=== PATIENT | female | born 1960 | race Caucasian/White ===

== ENCOUNTER 2018-05-18 15:28 | Inpatient (IN) ==
[2018-05-18] MEDS ORDERED: Sod Chloride 0.9% Inj 1,000 ML IV.SIG ONE ×2 (15:49)
--- NOTE | 2018-05-18 15:49 | ED ---
HPI General Chief complaint: Urogenital-Female Stated complaint: dehydrated Time Seen by Provider: 05/18/18 15:40 Source: patient Mode of arrival: ambulatory Limitations: no limitations History of Present Illness HPI narrative: Patient states that over the last 2 days she has not had an appetite, she has had a diarrhea, some nausea but no vomiting, she denies having any abdominal pain chest pain back pain to be dissuading her from eating. It is simply a loss of appetite. She feels dehydrated, so she decided to drink sixpack of beer and that made her at least pee a little bit. Primary CARE physician is Dr. harris No nondrug allergies Past medical history significant for hypertension, alcoholism (the patient drinks wine beer and liquor patient states that it is difficult for her to quantify how much she drinks but on average day she can go through 2 bottles of wine 1/5 of vodka and 1-2 sixpacks of beer) Related Data Home Medications Medication Instructions Recorded Confirmed amlodipine 10 mg PO DAILY 05/18/18 05/18/18 Allergies Allergy/AdvReac Type Severity Reaction Status Date / Time No Known Allergies Allergy Verified 05/18/18 15:39 Review of Systems ROS: all other systems reviewed are negative PMFSH History History Provided By: Patient and Family Member Medical History Medical History Hypertension (Acute) Family History Family History Sister HTN (hypertension) Father HTN (hypertension) Mother HTN (hypertension) Social History Social History Substance History: No History of Abuse Smoking Status: Current every day smoker Tobacco Type: Cigarettes Packs Per Day: 1 Cigarettes Per Day: 20.0 How Often Do You Have a Drink Containing Alcohol: 4 or more times a week Recent Travel in [facility] within the Last 8 Weeks: No Recent Out of Country Travel within the Last 8 Weeks: No Exam Narrative Exam Narrative: GENERAL: overweight female in moderate distress. Thus far no hallucinations. SKIN: Warm and dry. HEAD: Atraumatic. Normocephalic. EYES: Pupils equal and round. No scleral icterus. No injection or drainage. ENT: No nasal bleeding or discharge. Mucous membranes pink and moist. NECK: Trachea midline. No JVD. CARDIOVASCULAR: Regular rate and rhythm. no rubs or gallops. Patient is noted to be tachycardic RESPIRATORY: No accessory muscle use. Clear to auscultation. Breath sounds equal bilaterally. GASTROINTESTINAL: Abdomen soft, non-tender, nondistended. No rebound or guarding MUSCULOSKELETAL: Extremities without clubbing, cyanosis, or edema. No obvious deformities. NEUROLOGICAL: Awake and alert. No obvious cranial nerve deficits. Motor grossly within normal limits. Five out of 5 muscle strength in the arms and legs. Normal speech. Patient is noted to have course baseline tremors PSYCHIATRIC: Appropriate mood and affect; insight and judgment normal. Course Initial Documented Vital Signs Temperature 98.4 F 05/18/18 15:36 Pulse Rate 94 H 05/18/18 15:36 Respiratory Rate 20 05/18/18 15:36 Blood Pressure 163/79 H 05/18/18 15:36 Pulse Oximetry 99 05/18/18 15:36 Last Documented Vital Signs Temperature 98.0 F 05/21/18 16:00 Pulse Rate 80 05/21/18 18:00 Respiratory Rate 16 05/21/18 16:09 Blood Pressure 120/77 05/21/18 16:00 Pulse Oximetry 98 05/21/18 16:00 Critical Care Time Critical Care Time: Yes Total Critical Care Time: 45 Attestation: Aggregate critical care time was 45 minutes. Time to perform other separately billable procedures was not included in the critical care time. My time did not include minutes spent treating any other patients simultaneously or on activities that did not directly contribute to the patient's treatment. The services I provided to this patient were to treat and/or prevent clinically significant deterioration. I provided critical care services requiring my management, as noted below: Chart data review, documentation time, medication orders and management, vital sign assessments/reviewing monitor data, ordering and reviewing lab tests, ordering and interpreting/reviewing x-rays and diagnostic studies, care of the patient and discussion of the patient with the admitting physicians. 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 Lab Data Result diagrams: 05/20/18 05:45 05/21/18 05:10 Lab Results 05/18/18 05/18/18 05/18/18 Range/Units 16:00 16:00 16:00 WBC 7.3 (4.0-11.0) th/mm3 RBC 3.86 L (4.00-5.30) mil/mm3 Hgb 14.5 (11.6-15.3) gm/dL Hct 39.6 (35.0-46.0) % MCV 102.7 H (80.0-100.0) fL MCH 37.5 H (27.0-34.0) pg MCHC 36.5 H (32.0-36.0) % RDW 14.1 (11.6-17.2) % Plt Count 223 (150-450) th/mm3 MPV 6.5 L (7.0-11.0) fL Prelim Diff (Auto) Slide review pending Neut % (Auto) 85.9 H (16.0-70.0) % Lymph % (Auto) 10.7 (9.0-44.0) % [place] % (Auto) 3.0 (0.0-8.0) % Eos % (Auto) 0.1 (0.0-4.0) % Baso % (Auto) 0.3 (0.0-2.0) % Neut # (Auto) 6.3 (1.8-7.7) th/mm3 Lymph # (Auto) 0.8 L (1.0-4.8) th/mm3 [place] # (Auto) 0.2 (0.0-0.9) th/mm3 Eos # (Auto) 0.0 (0.0-0.4) th/mm3 Baso # (Auto) 0.0 (0.0-0.2) th/mm3 WBC Differential . Diff Scan Auto diff confirmed Differential Comment . Platelet Estimate (Normal) Platelet Morphology (Normal) PT (9.8-11.6) sec INR Ratio APTT (23.4-31.7) sec Sodium 117 L* (136-145) meq/L Potassium 2.6 L* (3.5-5.1) meq/L Chloride 78 L (98-107) meq/L Carbon Dioxide 22.2 (21.0-32.0) meq/L Anion Gap 17 H (5-15) meq/L BUN 4 L (7-18) mg/dL Creatinine 0.82 (0.50-1.00) mg/dL Estimated GFR 72 L (>89) mL/min Random Glucose 98 (74-106) mg/dL Calcium 7.8 L (8.5-10.1) mg/dL Prot Corrected Calcium (8.5-10.1) mg/dL Phosphorus (2.5-4.9) mg/dL Magnesium 0.8 L (1.5-2.5) mg/dL Total Bilirubin 1.7 H (0.2-1.0) mg/dL AST 115 H (15-37) U/L ALT 91 H (10-53) U/L Alkaline Phosphatase 501 H (45-117) U/L B-Natriuretic Peptide (0-100) pg/mL Total Protein 7.2 (6.4-8.2) g/dL Albumin 3.3 L (3.4-5.0) g/dL Lipase 204 (73-393) U/L Beta HCG, Qual 2.3 (0-5) mIU/mL Urine Color (Yellw/Straw) Urine Clarity (Clear) Urine pH (5.0-8.5) Ur Specific [place] (1.002-1.035) Urine Protein (Neg-Trace) mg/dL Urine Glucose (UA) (Negative) mg/dL Urine Ketones (Negative) mg/dL Urine Occult Blood (Negative) Urine Nitrate (Negative) Urine Bilirubin (Negative) Urine Urobilinogen (Less than 2) mg/dL Ur Leukocyte Esterase (Negative) Ur Squamous Epith Cells (0-5) /hpf Micro UA Comment Ur Microscopic Review Urine Culture Comments Stl C.difficile DNA Amp (Negative) St C. diff Tox Epid 027 (Negative) Urine Opiates Screen (Neg) Ur Barbiturates Screen (Neg) Ur Amphetamines Screen (Neg) U Benzodiazepines Scrn (Neg) Urine Cocaine Screen (Neg) U Cannabinoids Screen (Neg) Serum Alcohol 117 H (0-5) mg/dL Hepatitis A IgM Ab (Nonreactive) Hep Bs Antigen (Nonreactive) Hep B Core IgM Ab (Nonreactive) Hep C IgG Ab (Nonreactive) 05/18/18 05/18/18 05/18/18 Range/Units 16:00 17:50 17:50 WBC (4.0-11.0) th/mm3 RBC (4.00-5.30) mil/mm3 Hgb (11.6-15.3) gm/dL Hct (35.0-46.0) % MCV (80.0-100.0) fL MCH (27.0-34.0) pg MCHC (32.0-36.0) % RDW (11.6-17.2) % Plt Count (150-450) th/mm3 MPV (7.0-11.0) fL Prelim Diff (Auto) Neut % (Auto) (16.0-70.0) % Lymph % (Auto) (9.0-44.0) % [place] % (Auto) (0.0-8.0) % Eos % (Auto) (0.0-4.0) % Baso % (Auto) (0.0-2.0) % Neut # (Auto) (1.8-7.7) th/mm3 Lymph # (Auto) (1.0-4.8) th/mm3 [place] # (Auto) (0.0-0.9) th/mm3 Eos # (Auto) (0.0-0.4) th/mm3 Baso # (Auto) (0.0-0.2) th/mm3 WBC Differential Diff Scan Differential Comment Platelet Estimate (Normal) Platelet Morphology (Normal) PT (9.8-11.6) sec INR Ratio APTT (23.4-31.7) sec Sodium (136-145) meq/L Potassium (3.5-5.1) meq/L Chloride (98-107) meq/L Carbon Dioxide (21.0-32.0) meq/L Anion Gap (5-15) meq/L BUN (7-18) mg/dL Creatinine (0.50-1.00) mg/dL Estimated GFR (>89) mL/min Random Glucose (74-106) mg/dL Calcium (8.5-10.1) mg/dL Prot Corrected Calcium (8.5-10.1) mg/dL Phosphorus 2.7 (2.5-4.9) mg/dL Magnesium (1.5-2.5) mg/dL Total Bilirubin (0.2-1.0) mg/dL AST (15-37) U/L ALT (10-53) U/L Alkaline Phosphatase (45-117) U/L B-Natriuretic Peptide (0-100) pg/mL Total Protein (6.4-8.2) g/dL Albumin (3.4-5.0) g/dL Lipase (73-393) U/L Beta HCG, Qual (0-5) mIU/mL Urine Color Straw (Yellw/Straw) Urine Clarity Clear (Clear) Urine pH 6.0 (5.0-8.5) Ur Specific [place] 1.001 L (1.002-1.035) Urine Protein Negative (Neg-Trace) mg/dL Urine Glucose (UA) Negative (Negative) mg/dL Urine Ketones Negative (Negative) mg/dL Urine Occult Blood Negative (Negative) Urine Nitrate Negative (Negative) Urine Bilirubin Negative (Negative) Urine Urobilinogen Less than 2 (Less than 2) mg/dL Ur Leukocyte Esterase Negative (Negative) Ur Squamous Epith Cells <1 (0-5) /hpf Micro UA Comment Culture not ind Ur Microscopic Review Not Reportable Urine Culture Comments Culture not ind Stl C.difficile DNA Amp (Negative) St C. diff Tox Epid 027 (Negative) Urine Opiates Screen Neg (Neg) Ur Barbiturates Screen Neg (Neg) Ur Amphetamines Screen Neg (Neg) U Benzodiazepines Scrn Neg (Neg) Urine Cocaine Screen Neg (Neg) U Cannabinoids Screen Neg (Neg) Serum Alcohol (0-5) mg/dL Hepatitis A IgM Ab (Nonreactive) Hep Bs Antigen (Nonreactive) Hep B Core IgM Ab (Nonreactive) Hep C IgG Ab (Nonreactive) 05/18/18 05/18/18 05/18/18 Range/Units 18:12 18:12 18:12 WBC (4.0-11.0) th/mm3 RBC (4.00-5.30) mil/mm3 Hgb (11.6-15.3) gm/dL Hct (35.0-46.0) % MCV (80.0-100.0) fL MCH (27.0-34.0) pg MCHC (32.0-36.0) % RDW (11.6-17.2) % Plt Count (150-450) th/mm3 MPV (7.0-11.0) fL Prelim Diff (Auto) Neut % (Auto) (16.0-70.0) % Lymph % (Auto) (9.0-44.0) % [place] % (Auto) (0.0-8.0) % Eos % (Auto) (0.0-4.0) % Baso % (Auto) (0.0-2.0) % Neut # (Auto) (1.8-7.7) th/mm3 Lymph # (Auto) (1.0-4.8) th/mm3 [place] # (Auto) (0.0-0.9) th/mm3 Eos # (Auto) (0.0-0.4) th/mm3 Baso # (Auto) (0.0-0.2) th/mm3 WBC Differential Diff Scan Differential Comment Platelet Estimate (Normal) Platelet Morphology (Normal) PT 11.4 (9.8-11.6) sec INR 1.1 Ratio APTT 28.0 (23.4-31.7) sec Sodium (136-145) meq/L Potassium (3.5-5.1) meq/L Chloride (98-107) meq/L Carbon Dioxide (21.0-32.0) meq/L Anion Gap (5-15) meq/L BUN (7-18) mg/dL Creatinine (0.50-1.00) mg/dL Estimated GFR (>89) mL/min Random Glucose (74-106) mg/dL Calcium (8.5-10.1) mg/dL Prot Corrected Calcium (8.5-10.1) mg/dL Phosphorus (2.5-4.9) mg/dL Magnesium (1.5-2.5) mg/dL Total Bilirubin (0.2-1.0) mg/dL AST (15-37) U/L ALT (10-53) U/L Alkaline Phosphatase (45-117) U/L B-Natriuretic Peptide 139 H (0-100) pg/mL Total Protein (6.4-8.2) g/dL Albumin (3.4-5.0) g/dL Lipase (73-393) U/L Beta HCG, Qual (0-5) mIU/mL Urine Color (Yellw/Straw) Urine Clarity (Clear) Urine pH (5.0-8.5) Ur Specific [place] (1.002-1.035) Urine Protein (Neg-Trace) mg/dL Urine Glucose (UA) (Negative) mg/dL Urine Ketones (Negative) mg/dL Urine Occult Blood (Negative) Urine Nitrate (Negative) Urine Bilirubin (Negative) Urine Urobilinogen (Less than 2) mg/dL Ur Leukocyte Esterase (Negative) Ur Squamous Epith Cells (0-5) /hpf Micro UA Comment Ur Microscopic Review Urine Culture Comments Stl C.difficile DNA Amp (Negative) St C. diff Tox Epid 027 (Negative) Urine Opiates Screen (Neg) Ur Barbiturates Screen (Neg) Ur Amphetamines Screen (Neg) U Benzodiazepines Scrn (Neg) Urine Cocaine Screen (Neg) U Cannabinoids Screen (Neg) Serum Alcohol (0-5) mg/dL Hepatitis A IgM Ab (Nonreactive) Hep Bs Antigen (Nonreactive) Hep B Core IgM Ab (Nonreactive) Hep C IgG Ab (Nonreactive) 05/18/18 05/19/18 05/19/18 Range/Units 18:22 00:20 03:09 WBC 4.5 (4.0-11.0) th/mm3 RBC 3.21 L (4.00-5.30) mil/mm3 Hgb 12.0 D (11.6-15.3) gm/dL Hct 33.0 L (35.0-46.0) % MCV 102.7 H (80.0-100.0) fL MCH 37.4 H (27.0-34.0) pg MCHC 36.4 H (32.0-36.0) % RDW 14.2 (11.6-17.2) % Plt Count 172 (150-450) th/mm3 MPV 6.7 L (7.0-11.0) fL Prelim Diff (Auto) Slide review pending Neut % (Auto) 76.3 H (16.0-70.0) % Lymph % (Auto) 15.8 (9.0-44.0) % [place] % (Auto) 6.7 (0.0-8.0) % Eos % (Auto) 0.5 (0.0-4.0) % Baso % (Auto) 0.7 (0.0-2.0) % Neut # (Auto) 3.4 (1.8-7.7) th/mm3 Lymph # (Auto) 0.7 L (1.0-4.8) th/mm3 [place] # (Auto) 0.3 (0.0-0.9) th/mm3 Eos # (Auto) 0.0 (0.0-0.4) th/mm3 Baso # (Auto) 0.0 (0.0-0.2) th/mm3 WBC Differential . Diff Scan Auto diff confirmed Differential Comment . Platelet Estimate Normal (Normal) Platelet Morphology Normal (Normal) PT (9.8-11.6) sec INR Ratio APTT (23.4-31.7) sec Sodium 131 L D (136-145) meq/L Potassium 3.3 L (3.5-5.1) meq/L Chloride 95 L D (98-107) meq/L Carbon Dioxide 24.7 (21.0-32.0) meq/L Anion Gap 11 (5-15) meq/L BUN 3 L (7-18) mg/dL Creatinine 0.65 (0.50-1.00) mg/dL Estimated GFR Greater than 89 (>89) mL/min Random Glucose 83 (74-106) mg/dL Calcium 6.7 L* D (8.5-10.1) mg/dL Prot Corrected Calcium 7.5 L (8.5-10.1) mg/dL Phosphorus (2.5-4.9) mg/dL Magnesium 1.8 D (1.5-2.5) mg/dL Total Bilirubin (0.2-1.0) mg/dL AST (15-37) U/L ALT (10-53) U/L Alkaline Phosphatase (45-117) U/L B-Natriuretic Peptide (0-100) pg/mL Total Protein 5.5 L D (6.4-8.2) g/dL Albumin (3.4-5.0) g/dL Lipase (73-393) U/L Beta HCG, Qual (0-5) mIU/mL Urine Color (Yellw/Straw) Urine Clarity (Clear) Urine pH (5.0-8.5) Ur Specific [place] (1.002-1.035) Urine Protein (Neg-Trace) mg/dL Urine Glucose (UA) (Negative) mg/dL Urine Ketones (Negative) mg/dL Urine Occult Blood (Negative) Urine Nitrate (Negative) Urine Bilirubin (Negative) Urine Urobilinogen (Less than 2) mg/dL Ur Leukocyte Esterase (Negative) Ur Squamous Epith Cells (0-5) /hpf Micro UA Comment Ur Microscopic Review Urine Culture Comments Stl C.difficile DNA Amp (Negative) St C. diff Tox Epid 027 (Negative) Urine Opiates Screen (Neg) Ur Barbiturates Screen (Neg) Ur Amphetamines Screen (Neg) U Benzodiazepines Scrn (Neg) Urine Cocaine Screen (Neg) U Cannabinoids Screen (Neg) Serum Alcohol (0-5) mg/dL Hepatitis A IgM Ab Nonreactive (Nonreactive) Hep Bs Antigen Nonreactive (Nonreactive) Hep B Core IgM Ab Nonreactive (Nonreactive) Hep C IgG Ab Nonreactive (Nonreactive) 05/19/18 05/19/18 05/20/18 Range/Units 03:09 21:51 05:45 WBC 3.6 L (4.0-11.0) th/mm3 RBC 2.80 L (4.00-5.30) mil/mm3 Hgb 10.6 L (11.6-15.3) gm/dL Hct 29.7 L (35.0-46.0) % MCV 106.3 H D (80.0-100.0) fL MCH 38.0 H (27.0-34.0) pg MCHC 35.8 (32.0-36.0) % RDW 14.2 (11.6-17.2) % Plt Count 139 L (150-450) th/mm3 MPV 7.0 (7.0-11.0) fL Prelim Diff (Auto) Neut % (Auto) 77.1 H (16.0-70.0) % Lymph % (Auto) 17.0 (9.0-44.0) % [place] % (Auto) 4.1 (0.0-8.0) % Eos % (Auto) 1.1 (0.0-4.0) % Baso % (Auto) 0.7 (0.0-2.0) % Neut # (Auto) 2.8 (1.8-7.7) th/mm3 Lymph # (Auto) 0.6 L (1.0-4.8) th/mm3 [place] # (Auto) 0.1 (0.0-0.9) th/mm3 Eos # (Auto) 0.0 (0.0-0.4) th/mm3 Baso # (Auto) 0.0 (0.0-0.2) th/mm3 WBC Differential . Diff Scan Differential Comment Auto diff final Platelet Estimate (Normal) Platelet Morphology (Normal) PT (9.8-11.6) sec INR Ratio APTT (23.4-31.7) sec Sodium 133 L (136-145) meq/L Potassium 3.5 (3.5-5.1) meq/L Chloride 96 L (98-107) meq/L Carbon Dioxide 25.8 (21.0-32.0) meq/L Anion Gap 11 (5-15) meq/L BUN 4 L (7-18) mg/dL Creatinine 0.65 (0.50-1.00) mg/dL Estimated GFR Greater than 89 (>89) mL/min Random Glucose 77 (74-106) mg/dL Calcium 6.9 L* (8.5-10.1) mg/dL Prot Corrected Calcium 7.7 L (8.5-10.1) mg/dL Phosphorus (2.5-4.9) mg/dL Magnesium (1.5-2.5) mg/dL Total Bilirubin 2.6 H (0.2-1.0) mg/dL AST 122 H (15-37) U/L ALT 75 H (10-53) U/L Alkaline Phosphatase 456 H (45-117) U/L B-Natriuretic Peptide (0-100) pg/mL Total Protein 5.6 L (6.4-8.2) g/dL Albumin 2.6 L D (3.4-5.0) g/dL Lipase (73-393) U/L Beta HCG, Qual (0-5) mIU/mL Urine Color (Yellw/Straw) Urine Clarity (Clear) Urine pH (5.0-8.5) Ur Specific [place] (1.002-1.035) Urine Protein (Neg-Trace) mg/dL Urine Glucose (UA) (Negative) mg/dL Urine Ketones (Negative) mg/dL Urine Occult Blood (Negative) Urine Nitrate (Negative) Urine Bilirubin (Negative) Urine Urobilinogen (Less than 2) mg/dL Ur Leukocyte Esterase (Negative) Ur Squamous Epith Cells (0-5) /hpf Micro UA Comment Ur Microscopic Review Urine Culture Comments Stl C.difficile DNA Amp Negative (Negative) St C. diff Tox Epid 027 Negative (Negative) Urine Opiates Screen (Neg) Ur Barbiturates Screen (Neg) Ur Amphetamines Screen (Neg) U Benzodiazepines Scrn (Neg) Urine Cocaine Screen (Neg) U Cannabinoids Screen (Neg) Serum Alcohol (0-5) mg/dL Hepatitis A IgM Ab (Nonreactive) Hep Bs Antigen (Nonreactive) Hep B Core IgM Ab (Nonreactive) Hep C IgG Ab (Nonreactive) 05/20/18 05/21/18 Range/Units 05:45 05:10 WBC (4.0-11.0) th/mm3 RBC (4.00-5.30) mil/mm3 Hgb (11.6-15.3) gm/dL Hct (35.0-46.0) % MCV (80.0-100.0) fL MCH (27.0-34.0) pg MCHC (32.0-36.0) % RDW (11.6-17.2) % Plt Count (150-450) th/mm3 MPV (7.0-11.0) fL Prelim Diff (Auto) Neut % (Auto) (16.0-70.0) % Lymph % (Auto) (9.0-44.0) % [place] % (Auto) (0.0-8.0) % Eos % (Auto) (0.0-4.0) % Baso % (Auto) (0.0-2.0) % Neut # (Auto) (1.8-7.7) th/mm3 Lymph # (Auto) (1.0-4.8) th/mm3 [place] # (Auto) (0.0-0.9) th/mm3 Eos # (Auto) (0.0-0.4) th/mm3 Baso # (Auto) (0.0-0.2) th/mm3 WBC Differential Diff Scan Differential Comment Platelet Estimate (Normal) Platelet Morphology (Normal) PT (9.8-11.6) sec INR Ratio APTT (23.4-31.7) sec Sodium 133 L 133 L (136-145) meq/L Potassium 2.3 L* D 3.4 L D (3.5-5.1) meq/L Chloride 96 L 99 (98-107) meq/L Carbon Dioxide 26.8 24.9 (21.0-32.0) meq/L Anion Gap 10 9 (5-15) meq/L BUN 3 L 3 L (7-18) mg/dL Creatinine 0.48 L 0.54 (0.50-1.00) mg/dL Estimated GFR Greater than 89 Greater than 89 (>89) mL/min Random Glucose 82 93 (74-106) mg/dL Calcium 6.9 L* 7.3 L* (8.5-10.1) mg/dL Prot Corrected Calcium 7.8 L 8.2 L (8.5-10.1) mg/dL Phosphorus (2.5-4.9) mg/dL Magnesium 1.0 L D (1.5-2.5) mg/dL Total Bilirubin 2.3 H (0.2-1.0) mg/dL AST 107 H (15-37) U/L ALT 74 H (10-53) U/L Alkaline Phosphatase 373 H (45-117) U/L B-Natriuretic Peptide (0-100) pg/mL Total Protein 5.4 L 5.4 L (6.4-8.2) g/dL Albumin 2.4 L (3.4-5.0) g/dL Lipase (73-393) U/L Beta HCG, Qual (0-5) mIU/mL Urine Color (Yellw/Straw) Urine Clarity (Clear) Urine pH (5.0-8.5) Ur Specific [place] (1.002-1.035) Urine Protein (Neg-Trace) mg/dL Urine Glucose (UA) (Negative) mg/dL Urine Ketones (Negative) mg/dL Urine Occult Blood (Negative) Urine Nitrate (Negative) Urine Bilirubin (Negative) Urine Urobilinogen (Less than 2) mg/dL Ur Leukocyte Esterase (Negative) Ur Squamous Epith Cells (0-5) /hpf Micro UA Comment Ur Microscopic Review Urine Culture Comments Stl C.difficile DNA Amp (Negative) St C. diff Tox Epid 027 (Negative) Urine Opiates Screen (Neg) Ur Barbiturates Screen (Neg) Ur Amphetamines Screen (Neg) U Benzodiazepines Scrn (Neg) Urine Cocaine Screen (Neg) U Cannabinoids Screen (Neg) Serum Alcohol (0-5) mg/dL Hepatitis A IgM Ab (Nonreactive) Hep Bs Antigen (Nonreactive) Hep B Core IgM Ab (Nonreactive) Hep C IgG Ab (Nonreactive) Imaging Data Radiologist's impression: Chest X-Ray 05/18/18 00:00 CONCLUSION: The lungs are clear. Liver Ultrasound 05/19/18 00:00 CONCLUSION: 1. Hepatic steatosis. 2. Cholelithiasis. No sonographic evidence to suggest acute cholecystitis. 3. Right renal cyst. Discharge Plan Discharge Disposition Patient Disposition: 30 Still Patient Discharge Condition Condition: Fair Discharge Details Diagnosis: Alcohol withdrawal syndrome, Acute hyponatremia, Acute hypokalemia, Abnormal liver enzymes Physicians Team ED Provider: Milton Craft Primary Care Provider: Bree Santos Attending Provider: Ronald Conley Other Providers: Ellis Berumen ; [facility],Agency Status ED Status: Left Department Discharge Information Discharge Date/Time: 05/19/18 15:44
[2018-05-18 16:12] LABS: Baso % (Auto) 0.3 % (0.0-2.0); Eos % (Auto) 0.1 % (0.0-4.0); Hematocrit 39.6 % (35.0-46.0); Hemoglobin 14.5 gm/dL (11.6-15.3); Lymph # (Auto) 0.8 th/mm3 (1.0-4.8); Lymph % (Auto) 10.7 % (9.0-44.0); Mean Corpuscular Hemoglobin 37.5 pg (27.0-34.0); Mean Corpuscular Volume 102.7 fL (80.0-100.0); Mean Platelet Volume 6.5 fL (7.0-11.0); Mono # (Auto) 0.2 th/mm3 (0.0-0.9); Neut # (Auto) 6.3 th/mm3 (1.8-7.7); Neut % (Auto) 85.9 % (16.0-70.0); Platelet Count 223 th/mm3 (150-450); Red Blood Count 3.86 mil/mm3 (4.00-5.30); Red Cell Distribution Width 14.1 % (11.6-17.2); White Blood Count 7.3 th/mm3 (4.0-11.0)
[2018-05-18 16:18] LABS: Mean Corpuscular HGB Conc 36.5 % (32.0-36.0)
[2018-05-18 16:38] LABS: Alanine Aminotransferase 91 U/L (10-53); Albumin 3.3 g/dL (3.4-5.0); Alkaline Phosphatase 501 U/L (45-117); Anion Gap 17 meq/L (5-15); Aspartate Aminotransferase 115 U/L (15-37); Blood Urea Nitrogen 4 mg/dL (7-18); Calcium 7.8 mg/dL (8.5-10.1); Carbon Dioxide 22.2 meq/L (21.0-32.0); Chloride 78 meq/L (98-107); Glomerular Filtration Rate 72 mL/min (>89); Glucose,Random 98 mg/dL (74-106); Lipase 204 U/L (73-393); Magnesium 0.8 mg/dL (1.5-2.5); Total Protein 7.2 g/dL (6.4-8.2)
[2018-05-18 16:55] LABS: Sodium 117 meq/L (136-145)
[2018-05-18 16:57] LABS: Alcohol 117 mg/dL (0-5); Potassium 2.6 meq/L (3.5-5.1)
[2018-05-18] MEDS ORDERED: Potassium Chlor 20 mEq Premix 20 MEQ/100 ML PIGGYBACK IV.SIG ONE (17:05)
[2018-05-18] MEDS ORDERED: Multivitamin Inj 10 ML, Thiamine Inj 100 MG, Folic Acid Inj 1 MG in Sodium Chloride 0.4... IV.SIG ONE (17:05)
[2018-05-18] MEDS ORDERED: Mag Sulf 1 gm/100 ml Premix 100 ML IV.SIG ONE (17:08)
[2018-05-18] MEDS ORDERED: Acetaminophen 325 MG Tablet PO PRN (17:42)
[2018-05-18] MEDS ORDERED: Haloperidol Inj 5 MG/ML Ampul IV.PUSH PRN (17:42)
[2018-05-18] MEDS ORDERED: Bisacodyl 10 MG Supp RECTAL PRN (17:42)
--- NOTE | 2018-05-18 17:49 | XR ---
EXAM DATE: 05/18/2018 5:46 PM EST AGE/SEX: 57 years / Female INDICATIONS: Cough. CLINICAL DATA: This is the patient's initial encounter. Patient reports that signs and symptoms have been present for > 1 year and indicates a pain score of 0/10. MEDICAL/SURGICAL HISTORY: None. None. COMPARISON: [facility] [place], CHEST SINGLE AP, 03/18/2016. . FINDINGS: A single AP view of the chest demonstrates the lungs to be symmetrically aerated without evidence of mass, infiltrate or effusion. The cardiomediastinal contours are unremarkable. Osseous structures a re intact. CONCLUSION: The lungs are clear. Electronically signed by: Emil Proctor MD 05/18/2018 5:47 PM EST
[2018-05-18] MEDS ORDERED: Enoxaparin Inj 40 MG/0.4 ML Syringe SQ SCH (18:00)
[2018-05-18 18:11] LABS: Bilirubin,Urine Negative (Negative); Clarity,Urine Clear (Clear); Color,Urine Straw (Yellw/Straw); Glucose,Urine (UA) Negative (Negative); Leukocyte Esterase,Urine Negative (Negative); Nitrite,Urine Negative (Negative); Specific Gravity,Urine 1.001 (1.002-1.035); Squamous Epithelial Cell,Urine <1 /hpf (0-5)
[2018-05-18 18:15] LABS: Amphetamine Screen,Urine Neg (Neg); Barbiturate Screen,Urine Neg (Neg); Cannabinoid Screen,Urine Neg (Neg); Cocaine Screen,Urine Neg (Neg); Opiate Screen,Urine Neg (Neg)
[2018-05-18] MEDS ORDERED: Potassium Chloride 25 MEQ Effervescent Tablet PO ONE (18:15)
--- NOTE | 2018-05-18 18:20 | P.HP ---
History of Present Illness Service: [facility] Primary Care Physician: Bree Santos DO Chief Complaint: Increased shortness of breath times 2 months, diarrhea times 2 days History of Present Illness: Patient is a 57-year-old female with past medical history of HTN, EtOH dependence who initially came to the hospital for complaints of dehydration, diarrhea, shortness of breath. Sister at bedside. Patient states that for the past 2 months she has been having increasing shortness of breath. Mostly sleeping on the couch. States she continues to smoke about half a pack to a pack per day. Was not diagnosed with COPD as she has not gone to any doctor. Patient also states that for the past 2 days or so she has been having diarrhea about 1-2 and a day. Has not been eating well. Complaints of bilateral lower extremity edema with congestion in her chest states that she is coughing up phlegm occasionally. States that she feels very dehydrated this morning that she went out to buy sixpack of beer. States that she has been drinking almost every day but she did not finish her 6 pack of beer today. Patient states long history of alcohol use unable to mention year. Sister provided collateral information were and patient has been sober before about 6 years ago and then restarted drinking. States that patient has been reclusive and not allowing her in her life until if she was not feeling well today that she called her. Severe hyponatremia sodium 117, hypokalemia 2.8, hypomagnesemia 0.8 anion 17, BUN 4, creatinine 0.82, Chest x-ray showed lungs are clear. Review of Systems All other systems reviewed negative except as stated in HPI PMFSH - History History Provided By: Patient, Family Member - Medical History Medical History: Medical History (Last Reviewed 05/18/18 @ 17:57 by BEBETO Gerard) Hypertension Chronic hip pain after total replacement of right hip joint EtOH dependence Osteoporosis Osteoporosis Smoker - Surgical History Surgical History: Surgical History (Last Reviewed 05/18/18 @ 17:57 by BEBETO Gerard) Hx of tonsillectomy - Family History Family History: Family History (Last Updated 05/18/18 @ 17:58 by BEBETO Gerard) Sister HTN (hypertension) Father HTN (hypertension) Mother HTN (hypertension) - Social History I have reviewed the patient's Social History: Yes - Tobacco History Tobacco Use In Past 30 Days: Yes Smoking Status: Current every day smoker Tobacco Type: Cigarettes Packs Per Day: 1 - Alcohol History How Often Do You Have a Drink Containing Alcohol: 4 or more times a week - Substance Use History Substance History: No History of Abuse - Travel History Recent Travel in the [place] Within the Last 8 Weeks: No Recent Travel Out of the Country Within the Last 8 Weeks: No - Immunization History Tetanus Immunization: Unsure Medications and Allergies Active Medications: Active Medications Acetaminophen (Tylenol) 650 mg PO Q4H PRN PRN Reason: Temp > 100.4 Al Hydroxide/Mg Hydroxide (Milk Of Magnesia Liq) 30 ml PO Q12H PRN PRN Reason: Mild Constipation Bisacodyl (Dulcolax Supp) 10 mg RECTAL DAILY PRN PRN Reason: SEVERE CONSITIPATION Enoxaparin Sodium (Lovenox Inj) 40 mg SQ Q24H YVETTE Flumazenil (Romazecon Inj) 0.2 mg IV.PUSH Q1M PRN PRN Reason: OVERSEDATION Folic Acid (Folic Acid) 1 mg PO DAILY YVETTE Haloperidol Lactate (Haldol Inj) 1 mg IV.PUSH Q15M PRN PRN Reason: for severe agitation Potassium Chloride (Kcl 20 Meq Premix Inj) 20 meq in 100 mls @ 50 mls/hr IV.SIG ONCE ONE Stop: 05/18/18 19:04 Last Admin: 05/18/18 17:45 Dose: 50 mls/hr Multivitamins 10 ml/ Thiamine HCl 100 mg/ Folic Acid 1 mg/Sodium Chloride 511.2 mls @ 127.8 mls/hr IV.SIG ONCE ONE Stop: 05/18/18 21:04 Magnesium Sulfate/Dextrose (Magnesium Sulfate 1 Gm/D5w 100 Ml Premix) 100 mls @ 100 mls/hr IV.SIG ONCE ONE Stop: 05/18/18 18:07 Last Admin: 05/18/18 17:45 Dose: 100 mls/hr Lactulose (Lactulose Liq) 30 ml PO DAILY PRN PRN Reason: SEVERE CONSITIPATION Lorazepam (Ativan) 1 mg PO Q4H PRN PRN Reason: for CIWA 8-10 Lorazepam (Ativan Inj) 2 mg IV.PUSH Q2H PRN PRN Reason: for CIWA 11-14 Lorazepam (Ativan Inj) 2 mg IV.PUSH Q1H PRN PRN Reason: for CIWA 15-20 Lorazepam (Ativan Inj) 2 mg IV.PUSH Q15M PRN PRN Reason: for CIWA > 20 Lorazepam (Ativan Inj) 1 mg IV.PUSH Q4H PRN PRN Reason: for CIWA 8-10 Lorazepam (Ativan) 2 mg PO Q2H PRN PRN Reason: for CIWA 11-14 Multivitamins/Minerals (Theragran-M) 1 tab PO DAILY YVETTE Ondansetron HCl (Zofran Inj) 4 mg IV.PUSH Q6H PRN PRN Reason: NAUSEA OR VOMITING Potassium Bicarb/Potassium Chloride (K-Lyte Cl Eff) 50 meq PO ONCE ONE Stop: 05/18/18 17:49 Sennosides (Senokot) 17.2 mg PO Q12H PRN PRN Reason: Moderate Constipation Sodium Chloride (Ns Flush) 2 ml IV.FLUSH PRN PRN PRN Reason: FLUSH AFTER USING IV ACCESS Last Admin: 05/18/18 15:58 Dose: 2 ml Thiamine HCl (Vitamin B1) 100 mg PO BID [facility] Allergies Allergy/AdvReac Type Severity Reaction Status Date / Time No Known Allergies Allergy Verified 05/18/18 15:39 Home Medications Medication Instructions Recorded Confirmed Type amlodipine 10 mg PO DAILY 05/18/18 05/18/18 History Exam Vital signs: Vital Signs 05/18/18 15:36 05/18/18 15:47 Temperature 98.4 F 98.0 F Pulse Rate 94 H 103 H Respiratory Rate 20 18 Blood Pressure 163/79 H 156/94 H Pulse Oximetry 99 100 Intake & Output 05/17/18 05/18/18 05/18/18 18:59 06:59 18:59 Intake Total 1000 / 1000 Balance 1000 / 1000 Weight 68.039 kg Intake: IV 1000 / 1000 NS Inj 1,000 ML @ Wide Open IV. 1000 / 1000 SIG BOLUS ONE Rx#:[id number] Narrative: GENERAL: This is a female, appears older than stated age, in no apparent distress. SKIN: Warm and dry. Multiple papular rash left shoulder towards left upper back area, bilateral lower extremities. Spider angiomas chest and face. HEENT: Normocephalic. Pupils equal round and reactive. Nose without bleeding. Airway patent. NECK: Trachea midline. CARDIOVASCULAR: Regular rate and rhythm without murmurs, gallops, or rubs. RESPIRATORY: Coarse breath sounds. No wheezes, rales, or rhonchi. GASTROINTESTINAL: Abdomen soft, non-tender, mildly distended. Bowel Sounds normoactive x4. MUSCULOSKELETAL: Extremities without clubbing, cyanosis. Bilateral lower extremity edema +2 NEUROLOGICAL: Awake and alert. Oriented to place, person. No focal neuro deficit. Moves all extremities. Normal speech. Results - Labs CBC & Chem 7: 05/19/18 03:09 05/19/18 03:09 Labs: Laboratory Results - last 24 hr 05/18/18 05/18/18 16:00 16:00 WBC 7.3 RBC 3.86 L Hgb 14.5 Hct 39.6 MCV 102.7 H MCH 37.5 H MCHC 36.5 H RDW 14.1 Plt Count 223 MPV 6.5 L Prelim Diff (Auto) Slide review pending Neut % (Auto) 85.9 H Lymph % (Auto) 10.7 [place] % (Auto) 3.0 Eos % (Auto) 0.1 Baso % (Auto) 0.3 Neut # (Auto) 6.3 Lymph # (Auto) 0.8 L [place] # (Auto) 0.2 Eos # (Auto) 0.0 Baso # (Auto) 0.0 WBC Differential . Diff Scan Auto diff confirmed Differential Comment . Sodium 117 L* Potassium 2.6 L* Chloride 78 L Carbon Dioxide 22.2 Anion Gap 17 H BUN 4 L Creatinine 0.82 Estimated GFR 72 L Random Glucose 98 Calcium 7.8 L Magnesium 0.8 L Total Bilirubin 1.7 H AST 115 H ALT 91 H Alkaline Phosphatase 501 H Total Protein 7.2 Albumin 3.3 L Lipase 204 Serum Alcohol 117 H Caprini VTE Risk Assessment Caprini VTE Risk Assessment: No/Low Risk (score <= 1) Caprini Risk Assessment Model: Point Value = 1 Point Value = 2 Point Value = 3 Point Value = 5 Age 41-60 Minor surgery BMI > 25 kg/m2 Swollen legs Varicose veins or History of unexplained or recurrent spontaneous Oral contraceptives or hormone replacement Sepsis (< 1 month) Serious lung disease, including pneumonia (< 1 month) Abnormal pulmonary function Acute myocardial infarction Congestive heart failure (< 1 month) History of inflammatory bowel disease Medical patient at bed rest Age 61-74 Arthroscopic surgery Major open surgery (> 45 min) Laparoscopic surgery (> 45 min) Malignancy Confined to bed (> 72 hours) Immobilizing plaster cast Central venous access Age >= 75 History of VTE Family history of VTE Factor V Leiden Prothrombin [id number] Lupus anticoagulant Anticardiolipin antibodies Elevated serum homocysteine Heparin-induced thrombocytopenia Other congenital or acquired thrombophilia Stroke (< 1 month) Elective arthroplasty Hip, pelvis, or leg fracture Acute spinal cord injury (< 1 month) Prophylaxis Regimen: Total Risk Factor Score Risk Level Prophylaxis Regimen 0-1 Low Early ambulation 2 Moderate Order ONE of the following: *Sequential Compression Device (SCD) *Heparin 5000 units SQ BID 3-4 Higher Order ONE of the following medications: *Heparin 5000 units SQ TID *Enoxaparin/Lovenox 40 mg SQ daily (WT < 150 kg, CrCl > 30 mL/min) *Enoxaparin/Lovenox 30 mg SQ daily (WT < 150 kg, CrCl > 10-29 mL/min) *Enoxaparin/Lovenox 30 mg SQ BID (WT < 150 kg, CrCl > 30 mL/min) AND/OR *Sequential Compression Device (SCD) 5 or more Highest Order ONE of the following medications: *Heparin 5000 units SQ TID (Preferred with Epidurals) *Enoxaparin/Lovenox 40 mg SQ daily (WT < 150 kg, CrCl > 30 mL/min) *Enoxaparin/Lovenox 30 mg SQ daily (WT < 150 kg, CrCl > 10-29 mL/min) *Enoxaparin/Lovenox 30 mg SQ BID (WT < 150 kg, CrCl > 30 mL/min) AND *Sequential Compression Device (SCD) Assessment and Plan - Plan Patient is a 57-year-old female with past medical history of HTN, EtOH dependence who initially came to the hospital for complaints of dehydration, diarrhea, shortness of breath. Severe hyponatremia -Na 117 -NS Bolus given in the ED -Avoid quick and over correction to avoid ODS -NS 100ml/hour -Correct other electrolytes -Recheck Na levels Hypokalemia,severe Hypomagnesemia, severe -Potassium and magnesium replacement. Check phosphorus -Monitor levels Congestion Cough BLE Edema Poss underlying COPD -Current day smoker. Counselled -Chest x-ray negative -Check echo, ETOH use. -Check BNP -Duoneb PRN EtOH dependence, abuse -Counselled -METHODIST JENNIE EDMUNDSON Protocol -Folate, multivitamin, thiamine Acute liver injury vs failure Transaminitis -Possibly secondary to alcohol abuse -Avoid hepatotoxins -Trend LFTS -Liver US, Hepatitis panel Papular rash Bug bites -Hydrocortisone cream DVT Prop SCDs Code Status: Full Code Discussed Condition With: Patient, nursing, Dr. Cantrell Discharge Planning: DC when clinically improved
[2018-05-18 18:50] LABS: INR 1.1 Ratio; Prothrombin Time 11.4 sec (9.8-11.6)
[2018-05-18] MEDS: Magnesium Sulfate Inj 2 GM in Sodium Chlor 0.9% Inj 96 ML IV.SIG ONE ×2 (19:56→20:39)
[2018-05-18] MEDS: Sod Chloride 0.9% Inj 1,000 ML IV.CONT SCH (19:58)
[2018-05-18 20:31] LABS: Hepatitits B Surface Antigen Nonreactive (Nonreactive)
[2018-05-18 21:04] LABS: Hepatitis A IgM Antibody Nonreactive (Nonreactive)
[2018-05-18] MEDS: LORazepam 1 MG Tablet PO PRN (23:24)
[2018-05-19 00:59] LABS: Anion Gap 11 meq/L (5-15); Blood Urea Nitrogen 3 mg/dL (7-18); Calcium 6.7 mg/dL (8.5-10.1); Carbon Dioxide 24.7 meq/L (21.0-32.0); Chloride 95 meq/L (98-107); Glomerular Filtration Rate Greater Than 89 mL/min (>89); Glucose,Random 83 mg/dL (74-106); Magnesium 1.8 mg/dL (1.5-2.5); Potassium 3.3 meq/L (3.5-5.1); Sodium 131 meq/L (136-145)
[2018-05-19 01:10] LABS: Calcium-Albumin Corrected 7.5 mg/dL (8.5-10.1); Total Protein 5.5 g/dL (6.4-8.2)
[2018-05-19 03:37] LABS: Baso % (Auto) 0.7 % (0.0-2.0); Eos % (Auto) 0.5 % (0.0-4.0); Lymph # (Auto) 0.7 th/mm3 (1.0-4.8); Lymph % (Auto) 15.8 % (9.0-44.0); Mean Corpuscular Hemoglobin 37.4 pg (27.0-34.0); Mean Corpuscular Volume 102.7 fL (80.0-100.0); Mean Platelet Volume 6.7 fL (7.0-11.0); Mono # (Auto) 0.3 th/mm3 (0.0-0.9); Mono % (Auto) 6.7 % (0.0-8.0); Neut # (Auto) 3.4 th/mm3 (1.8-7.7); Neut % (Auto) 76.3 % (16.0-70.0); Platelet Count 172 th/mm3 (150-450); Red Blood Count 3.21 mil/mm3 (4.00-5.30); Red Cell Distribution Width 14.2 % (11.6-17.2); White Blood Count 4.5 th/mm3 (4.0-11.0)
[2018-05-19 03:39] LABS: Mean Corpuscular HGB Conc 36.4 % (32.0-36.0)
[2018-05-19 04:07] LABS: Alanine Aminotransferase 75 U/L (10-53); Albumin 2.6 g/dL (3.4-5.0); Alkaline Phosphatase 456 U/L (45-117); Anion Gap 11 meq/L (5-15); Aspartate Aminotransferase 122 U/L (15-37); Blood Urea Nitrogen 4 mg/dL (7-18); Calcium 6.9 mg/dL (8.5-10.1); Carbon Dioxide 25.8 meq/L (21.0-32.0); Chloride 96 meq/L (98-107); Glomerular Filtration Rate Greater Than 89 mL/min (>89); Glucose,Random 77 mg/dL (74-106); Potassium 3.5 meq/L (3.5-5.1); Sodium 133 meq/L (136-145); Total Protein 5.6 g/dL (6.4-8.2)
[2018-05-19 04:11] LABS: Platelet Estimate Normal (Normal); Platelet Morphology Normal (Normal)
[2018-05-19] MEDS: Sod Chloride 0.9% Inj 1,000 ML IV.CONT SCH (06:23)
--- NOTE | 2018-05-19 08:28 | P.PNIM ---
Subjective Interval history: Pt seen and examined for f/u EtOH withdrawal, severe electrolyte disturbances, and cough/SOB. Pt continues to have shortness of breath, chest congestion, and productive cough. She states she has been smoking for quite some time and has never had any PFTs to test for COPD. She does not take any inhalers. She also endorses generalized malaise, rhinorrhea, and myalgias. She has not had a flu vaccine. She denies chest pain, abdominal pain, nausea, vomiting, fever, or chills. She states overall she feels a little bit better than when she came in. Physical Exam Vital signs: Vital Signs 05/18/18 15:36 05/18/18 15:47 05/18/18 17:52 Temperature 98.4 F 98.0 F Pulse Rate 94 H 103 H Respiratory Rate 20 18 Blood Pressure 163/79 H 156/94 H Pulse Oximetry 99 100 100 05/18/18 18:54 05/18/18 19:38 05/19/18 07:38 Temperature 97.8 F 98.5 F Pulse Rate 92 H 92 H 96 H Respiratory Rate 19 22 17 Blood Pressure 188/116 H 107/63 130/67 Pulse Oximetry 96 97 Intake & Output 05/18/18 05/19/18 05/19/18 18:59 06:59 18:59 Intake Total 2099 1711.2 / 1711.2 Balance 2099 1711.2 / 1711.2 Weight 68.039 kg Intake: IV 2099 1711.2 / 1711.2 NS Inj 1,000 ML @ 100 mls/hr IV 1000 / 1000 .CONT .Q10H YVETTE Rx#:[id number] Magnesium Sulfate 1 gm/D5W 100 100 / 100 ml Premix 100 ML @ 100 mls/hr IV.SIG ONCE ONE Rx#:[id number] Magnesium Sulfate Inj 2 GM In 100 / 100 NS Inj 96 ML @ 50 mls/hr IV.SIG ONCE ONE Rx#:[id number] MVI-12 Inj 10 ML Thiamine Inj 511.2 / 511.2 100 MG Folvite Inj 1 MG In 1/2 Normal Saline Inj 500 ML @ 127. 8 mls/hr IV.SIG ONCE ONE Rx#: [id number] KCl 20 mEq Premix Inj 20 meq In 100 / 100 100 ml @ 50 mls/hr IV.SIG ONCE ONE Rx#:[id number] NS Inj 1,000 ML @ Wide Open IV. 1999 SIG BOLUS ONE Rx#:[id number] Narrative: GENERAL: WN, WD female resting in bed in NAD. Appears tired. SKIN: Warm and dry. [place] over UE. HEENT: AT/NC. Pupils equal and round. Mild scleral icterus. MMM. NECK: Supple no tender LAD or JVD. HEART: Tachycardic no murmurs, rubs, gallops. LUNGS: Diffuse rhonchi, occasional expiratory wheezing, and prolonged expiratory phase. ABDOMEN: +BS, soft, NT, ND. EXTREMITIES: No LE edema. Calves supple and nontender. 2+ pedal pulses. NEURO: Awake and alert. Results - Labs CBC & Chem 7: 05/19/18 03:09 05/19/18 03:09 Laboratory Results - last 24 hr 05/18/18 05/18/18 05/18/18 16:00 16:00 16:00 WBC 7.3 RBC 3.86 L Hgb 14.5 Hct 39.6 MCV 102.7 H MCH 37.5 H MCHC 36.5 H RDW 14.1 Plt Count 223 MPV 6.5 L Prelim Diff (Auto) Slide review pending Neut % (Auto) 85.9 H Lymph % (Auto) 10.7 [place] % (Auto) 3.0 Eos % (Auto) 0.1 Baso % (Auto) 0.3 Neut # (Auto) 6.3 Lymph # (Auto) 0.8 L [place] # (Auto) 0.2 Eos # (Auto) 0.0 Baso # (Auto) 0.0 WBC Differential . Diff Scan Auto diff confirmed Differential Comment . Platelet Estimate Platelet Morphology PT INR APTT Sodium 117 L* Potassium 2.6 L* Chloride 78 L Carbon Dioxide 22.2 Anion Gap 17 H BUN 4 L Creatinine 0.82 Estimated GFR 72 L Random Glucose 98 Calcium 7.8 L Prot Corrected Calcium Phosphorus Magnesium 0.8 L Total Bilirubin 1.7 H AST 115 H ALT 91 H Alkaline Phosphatase 501 H B-Natriuretic Peptide Total Protein 7.2 Albumin 3.3 L Lipase 204 Beta HCG, Qual 2.3 Urine Color Urine Clarity Urine pH Ur Specific [place] Urine Protein Urine Glucose (UA) Urine Ketones Urine Occult Blood Urine Nitrate Urine Bilirubin Urine Urobilinogen Ur Leukocyte Esterase Ur Squamous Epith Cells Micro UA Comment Ur Microscopic Review Urine Culture Comments Urine Opiates Screen Ur Barbiturates Screen Ur Amphetamines Screen U Benzodiazepines Scrn Urine Cocaine Screen U Cannabinoids Screen Serum Alcohol 117 H Hepatitis A IgM Ab Hep Bs Antigen Hep B Core IgM Ab Hep C IgG Ab 05/18/18 05/18/18 05/18/18 16:00 17:50 17:50 WBC RBC Hgb Hct MCV MCH MCHC RDW Plt Count MPV Prelim Diff (Auto) Neut % (Auto) Lymph % (Auto) [place] % (Auto) Eos % (Auto) Baso % (Auto) Neut # (Auto) Lymph # (Auto) [place] # (Auto) Eos # (Auto) Baso # (Auto) WBC Differential Diff Scan Differential Comment Platelet Estimate Platelet Morphology PT INR APTT Sodium Potassium Chloride Carbon Dioxide Anion Gap BUN Creatinine Estimated GFR Random Glucose Calcium Prot Corrected Calcium Phosphorus 2.7 Magnesium Total Bilirubin AST ALT Alkaline Phosphatase B-Natriuretic Peptide Total Protein Albumin Lipase Beta HCG, Qual Urine Color Straw Urine Clarity Clear Urine pH 6.0 Ur Specific [place] 1.001 L Urine Protein Negative Urine Glucose (UA) Negative Urine Ketones Negative Urine Occult Blood Negative Urine Nitrate Negative Urine Bilirubin Negative Urine Urobilinogen Less than 2 Ur Leukocyte Esterase Negative Ur Squamous Epith Cells <1 Micro UA Comment Culture not ind Ur Microscopic Review Not Reportable Urine Culture Comments Culture not ind Urine Opiates Screen Neg Ur Barbiturates Screen Neg Ur Amphetamines Screen Neg U Benzodiazepines Scrn Neg Urine Cocaine Screen Neg U Cannabinoids Screen Neg Serum Alcohol Hepatitis A IgM Ab Hep Bs Antigen Hep B Core IgM Ab Hep C IgG Ab 05/18/18 05/18/18 05/18/18 18:12 18:12 18:12 WBC RBC Hgb Hct MCV MCH MCHC RDW Plt Count MPV Prelim Diff (Auto) Neut % (Auto) Lymph % (Auto) [place] % (Auto) Eos % (Auto) Baso % (Auto) Neut # (Auto) Lymph # (Auto) [place] # (Auto) Eos # (Auto) Baso # (Auto) WBC Differential Diff Scan Differential Comment Platelet Estimate Platelet Morphology PT 11.4 INR 1.1 APTT 28.0 Sodium Potassium Chloride Carbon Dioxide Anion Gap BUN Creatinine Estimated GFR Random Glucose Calcium Prot Corrected Calcium Phosphorus Magnesium Total Bilirubin AST ALT Alkaline Phosphatase B-Natriuretic Peptide 139 H Total Protein Albumin Lipase Beta HCG, Qual Urine Color Urine Clarity Urine pH Ur Specific [place] Urine Protein Urine Glucose (UA) Urine Ketones Urine Occult Blood Urine Nitrate Urine Bilirubin Urine Urobilinogen Ur Leukocyte Esterase Ur Squamous Epith Cells Micro UA Comment Ur Microscopic Review Urine Culture Comments Urine Opiates Screen Ur Barbiturates Screen Ur Amphetamines Screen U Benzodiazepines Scrn Urine Cocaine Screen U Cannabinoids Screen Serum Alcohol Hepatitis A IgM Ab Hep Bs Antigen Hep B Core IgM Ab Hep C IgG Ab 05/18/18 05/19/18 05/19/18 18:22 00:20 03:09 WBC 4.5 RBC 3.21 L Hgb 12.0 D Hct 33.0 L MCV 102.7 H MCH 37.4 H MCHC 36.4 H RDW 14.2 Plt Count 172 MPV 6.7 L Prelim Diff (Auto) Slide review pending Neut % (Auto) 76.3 H Lymph % (Auto) 15.8 [place] % (Auto) 6.7 Eos % (Auto) 0.5 Baso % (Auto) 0.7 Neut # (Auto) 3.4 Lymph # (Auto) 0.7 L [place] # (Auto) 0.3 Eos # (Auto) 0.0 Baso # (Auto) 0.0 WBC Differential . Diff Scan Auto diff confirmed Differential Comment . Platelet Estimate Normal Platelet Morphology Normal PT INR APTT Sodium 131 L D Potassium 3.3 L Chloride 95 L D Carbon Dioxide 24.7 Anion Gap 11 BUN 3 L Creatinine 0.65 Estimated GFR Greater than 89 Random Glucose 83 Calcium 6.7 L* D Prot Corrected Calcium 7.5 L Phosphorus Magnesium 1.8 D Total Bilirubin AST ALT Alkaline Phosphatase B-Natriuretic Peptide Total Protein 5.5 L D Albumin Lipase Beta HCG, Qual Urine Color Urine Clarity Urine pH Ur Specific [place] Urine Protein Urine Glucose (UA) Urine Ketones Urine Occult Blood Urine Nitrate Urine Bilirubin Urine Urobilinogen Ur Leukocyte Esterase Ur Squamous Epith Cells Micro UA Comment Ur Microscopic Review Urine Culture Comments Urine Opiates Screen Ur Barbiturates Screen Ur Amphetamines Screen U Benzodiazepines Scrn Urine Cocaine Screen U Cannabinoids Screen Serum Alcohol Hepatitis A IgM Ab Nonreactive Hep Bs Antigen Nonreactive Hep B Core IgM Ab Nonreactive Hep C IgG Ab Nonreactive 05/19/18 03:09 WBC RBC Hgb Hct MCV MCH MCHC RDW Plt Count MPV Prelim Diff (Auto) Neut % (Auto) Lymph % (Auto) [place] % (Auto) Eos % (Auto) Baso % (Auto) Neut # (Auto) Lymph # (Auto) [place] # (Auto) Eos # (Auto) Baso # (Auto) WBC Differential Diff Scan Differential Comment Platelet Estimate Platelet Morphology PT INR APTT Sodium 133 L Potassium 3.5 Chloride 96 L Carbon Dioxide 25.8 Anion Gap 11 BUN 4 L Creatinine 0.65 Estimated GFR Greater than 89 Random Glucose 77 Calcium 6.9 L* Prot Corrected Calcium 7.7 L Phosphorus Magnesium Total Bilirubin 2.6 H AST 122 H ALT 75 H Alkaline Phosphatase 456 H B-Natriuretic Peptide Total Protein 5.6 L Albumin 2.6 L D Lipase Beta HCG, Qual Urine Color Urine Clarity Urine pH Ur Specific [place] Urine Protein Urine Glucose (UA) Urine Ketones Urine Occult Blood Urine Nitrate Urine Bilirubin Urine Urobilinogen Ur Leukocyte Esterase Ur Squamous Epith Cells Micro UA Comment Ur Microscopic Review Urine Culture Comments Urine Opiates Screen Ur Barbiturates Screen Ur Amphetamines Screen U Benzodiazepines Scrn Urine Cocaine Screen U Cannabinoids Screen Serum Alcohol Hepatitis A IgM Ab Hep Bs Antigen Hep B Core IgM Ab Hep C IgG Ab - Imaging Impressions Chest X-Ray 05/18/18 00:00 CONCLUSION: The lungs are clear. Assessment and Plan - Assessment (1) Transaminitis Code(s): R74.0 - Nonspecific elevation of levels of transaminase and lactic acid dehydrogenase [LDH] Status: Acute (2) Bronchitis Code(s): J40 - Bronchitis, not specified as acute or chronic Status: Acute (3) Alcohol withdrawal syndrome Code(s): F10.239 - Alcohol dependence with withdrawal, unspecified Status: Acute (4) Acute hyponatremia Code(s): E87.1 - Hypo-osmolality and hyponatremia Status: Acute (5) Acute hypokalemia Code(s): E87.6 - Hypokalemia Status: Acute - Plan 57 year old female with HTN, EtOH abuse, and tobacco abuse admitted overnight for EtOH withdrawal, hypokalemia, hyponatremia, hypomagnesemia, and shortness of breath with cough. 1. EtOH withdrawal - Serum EtOH 117 on admission - UDS negative - Counseled on EtOH cessation - CIWA protocol, has required two doses of Ativan overnight - Rally pack 2. Hyponatremia - Likely chronically hyponatremic secondary to beer potomania - Na 117 on admission and patient has been on NS at 100 ml/hr overnight - Na up to 133 this AM - Decrease fluid rate to 75 ml/hr - Continue to monitor 3. Hypokalemia - Potassium 2.6 on admission, repleted - Potassium up to 3.5 this AM - Continue to monitor and replace as needed 4. Hypomagnesemia - Mg 0.8 on admission, repleted - Up to 1.8 - Continue to monitor and replace as needed 5. Bronchitis - Patient likely has underlying COPD but has never been formally diagnosed - CXR shows clear lungs - Start scheduled DuoNeb with albuterol PRN - Start Azithromycin - Mucinex BID - Check influenza Ag - Supplemental O2 PRN 6. Shortness of breath - Likely secondary to above but given patient's chronic EtOH abuse obtaining 2D echo to assess for cardiomyopathy - Supplemental O2 and pulmonary toilet - No lower extremity edema noted on today's exam - BNP 139 7. Transaminitis - AST and ALT elevated with AST>ALT consistent with alcoholic liver disease - Total bili mildly elevated, alkaline phosphatase elevated - Hepatitis panel negative - Liver u/s pending - Avoid hepatotoxic agents DVT prophylaxis: SCDs Code Status: FULL Discussed Condition With: Patient Discharge Planning: Anticipate D/C in next 1-2 days if patient continues to improve (3) Alcohol withdrawal syndrome Qualifiers: Complication of substance-induced condition: uncomplicated Qualified Code(s) : F10.230 - Alcohol dependence with withdrawal, uncomplicated
[2018-05-19] MEDS: guaiFENesin 600 MG ER Tablet PO SCH ×2 (08:46→21:56)
[2018-05-19] MEDS: Azithromycin 250 MG Tablet PO SCH (08:46)
[2018-05-19] MEDS: Folic Acid 1 MG Tablet PO SCH (08:46)
--- NOTE | 2018-05-19 10:18 | US ---
EXAM DATE: 05/19/2018 10:11 AM EST AGE/SEX: 57 years / Female INDICATIONS: Abnormal lab values. CLINICAL DATA: This is the patient's initial encounter. Patient reports that signs and symptoms have been present for 1 day and indicates a pain score of 0/10. MEDICAL/SURGICAL HISTORY: Hypertension. ETOH. Tonsillectomy. Right hip replacement. COMPARISON: No prior exams available for comparison. MEASUREMENTS: Liver:__ 14.8 cm. Common Bile Duct:__ 4mm. Right Kidney:__ 9.4 x 4.4 x cm. FINDINGS: Liver: Increased echotexture without focal lesion or ductal dilation. Portal Vein: Hepatopedal flow seen in portal vein. Common Duct: No intraluminal mass or stone visualized. Gallbladder: There is a solitary mobile stone that measures 7 mm. No wall thickening or pericholecys tic fluid.. Pancreas: The visualized portions are within normal limits Right Kidney: Normal echotexture and cortical thickness. No mass or hydronephrosis. There is a 1.7 c m hypoechoic structure involving the lower pole. It has posterior acoustical enhancement. No blood fl ow. Other: None. CONCLUSION: 1. Hepatic steatosis. 2. Cholelithiasis. No sonographic evidence to suggest acute cholecystitis. 3. Right renal cyst. Electronically signed by: Emil Flores MD 05/19/2018 10:17 AM EST
[2018-05-19] MEDS: Multivitamin/Minerals Therapeutic Tablet PO SCH (10:31)
--- NOTE | 2018-05-19 13:49 | ECHRPT ---
Indication: SOB CONCLUSIONS Normal left ventricular size. Wall thickness is normal. The left ventricular systolic function is normal with an estimated ejection fraction in the range of 60-65%. Mitral annular calcification is present. BP: / HR: Rhythm: Technical Quality: FINDINGS LEFT VENTRICLE Normal left ventricular size. Wall thickness is normal. The left ventricular systolic function is normal with an estimated ejection fraction in the range of 60-65%. RIGHT VENTRICLE Normal right ventricular size and systolic function. LEFT ATRIUM The left atrial size is normal. RIGHT ATRIUM The right atrial size is normal. ATRIAL SEPTUM Normal atrial septal thickness without atrial level shunting by limited color doppler interrogation. AORTA The aortic root and proximal ascending aorta are normal in size on limited imaging. MITRAL VALVE Mitral annular calcification is present. AORTIC VALVE Trileaflet aortic valve. No aortic valve stenosis or regurgitation. TRICUSPID VALVE Structurally normal tricuspid valve. No tricuspid valve stenosis or regurgitation. PULMONARY VALVE The pulmonary valve is not well visualized. VESSELS The inferior vena cava is normal in size. PERICARDIUM No pericardial effusion. Dk Jimenez MD, FACC (Electronically Signed) Final Date:19 May 2018 13:48
[2018-05-19] MEDS: LORazepam 1 MG Tablet PO PRN ×2 (17:17→21:57)
--- NOTE | 2018-05-19 18:01 | ECG ---
Date Performed: 05/18/2018 Time Performed: 18:03:57 PTAGE: 57 years EKG: Sinus rhythm POSSIBLE RIGHT VENTRICULAR CONDUCTION DELAY ABNORMAL ECG NO PREVIOUS TRACING DOCTOR: Dk Jimenez Interpretating Date/Time 05/19/2018 17:59:33
[2018-05-20] MEDS: Sod Chloride 0.9% Inj 1,000 ML IV.CONT SCH ×3 (00:17→11:31)
[2018-05-20] MEDS: Loperamide 2 MG Capsule PO PRN (04:29)
[2018-05-20] MEDS: LORazepam 1 MG Tablet PO PRN ×4 (04:29→20:58)
[2018-05-20 06:52] LABS: Baso % (Auto) 0.7 % (0.0-2.0); Eos % (Auto) 1.1 % (0.0-4.0); Hematocrit 29.7 % (35.0-46.0); Hemoglobin 10.6 gm/dL (11.6-15.3); Lymph # (Auto) 0.6 th/mm3 (1.0-4.8); Mean Corpuscular HGB Conc 35.8 % (32.0-36.0); Mean Corpuscular Volume 106.3 fL (80.0-100.0); Mono # (Auto) 0.1 th/mm3 (0.0-0.9); Mono % (Auto) 4.1 % (0.0-8.0); Neut # (Auto) 2.8 th/mm3 (1.8-7.7); Neut % (Auto) 77.1 % (16.0-70.0); Platelet Count 139 th/mm3 (150-450); Red Cell Distribution Width 14.2 % (11.6-17.2); White Blood Count 3.6 th/mm3 (4.0-11.0)
[2018-05-20 08:02] LABS: Alanine Aminotransferase 74 U/L (10-53); Albumin 2.4 g/dL (3.4-5.0); Alkaline Phosphatase 373 U/L (45-117); Anion Gap 10 meq/L (5-15); Aspartate Aminotransferase 107 U/L (15-37); Blood Urea Nitrogen 3 mg/dL (7-18); Calcium 6.9 mg/dL (8.5-10.1); Carbon Dioxide 26.8 meq/L (21.0-32.0); Chloride 96 meq/L (98-107); Glomerular Filtration Rate Greater Than 89 mL/min (>89); Glucose,Random 82 mg/dL (74-106); Sodium 133 meq/L (136-145); Total Protein 5.4 g/dL (6.4-8.2)
[2018-05-20 08:25] LABS: Potassium 2.3 meq/L (3.5-5.1)
[2018-05-20] MEDS ORDERED: Mag Sulf 1 gm/100 ml Premix 100 ML IV.SIG ONE (08:38)
[2018-05-20] MEDS: Azithromycin 250 MG Tablet PO SCH (09:14)
[2018-05-20] MEDS: Folic Acid 1 MG Tablet PO SCH (09:14)
[2018-05-20] MEDS: guaiFENesin 600 MG ER Tablet PO SCH ×2 (09:14→20:59)
[2018-05-20] MEDS: Multivitamin/Minerals Therapeutic Tablet PO SCH (09:14)
--- NOTE | 2018-05-20 12:57 | P.PN ---
Subjective Interval history: Follow-up alcohol withdrawal/hypokalemia May 20, 2018-patient seen and examined, CIWA score of 10, still tremulous, denies any chest pain or heart palpitations. Very anxious. Sister by the bedside. Physical Exam Vital signs: Vital Signs 05/19/18 14:15 05/19/18 15:29 05/19/18 15:33 Temperature Pulse Rate 85 85 83 Respiratory Rate 20 18 20 Blood Pressure 144/65 H 119/73 Pulse Oximetry 94 L 94 L 94 L 05/19/18 16:00 05/19/18 19:11 05/19/18 20:00 Temperature 98.6 F Pulse Rate 90 90 85 Respiratory Rate 18 16 22 Blood Pressure 113/60 112/70 Pulse Oximetry 98 05/19/18 21:00 05/19/18 22:00 05/19/18 23:00 Temperature Pulse Rate 86 85 84 Respiratory Rate Blood Pressure Pulse Oximetry 05/19/18 23:37 05/20/18 00:00 05/20/18 01:00 Temperature Pulse Rate 89 82 73 Respiratory Rate 18 16 Blood Pressure 116/78 Pulse Oximetry 95 05/20/18 02:00 05/20/18 03:00 05/20/18 04:00 Temperature Pulse Rate 73 86 79 Respiratory Rate 18 Blood Pressure 128/79 Pulse Oximetry 95 05/20/18 05:00 05/20/18 06:00 05/20/18 07:00 Temperature Pulse Rate 72 72 114 H Respiratory Rate Blood Pressure Pulse Oximetry 05/20/18 07:24 05/20/18 08:00 05/20/18 09:00 Temperature 98.4 F Pulse Rate 78 84 90 Respiratory Rate 16 20 Blood Pressure 134/82 Pulse Oximetry 97 98 05/20/18 10:00 05/20/18 11:00 05/20/18 11:47 Temperature Pulse Rate 86 88 86 Respiratory Rate 16 Blood Pressure Pulse Oximetry 05/20/18 12:00 Temperature Pulse Rate 96 H Respiratory Rate 20 Blood Pressure 112/60 Pulse Oximetry 97 Intake & Output 05/19/18 05/20/18 05/20/18 18:59 06:59 18:59 Intake Total 480 / 480 2230 / 2230 275 / 275 Balance 480 / 480 2230 / 2230 275 / 275 Weight 66 kg Intake: IV 1750 / 1750 275 / 275 NS Inj 1,000 ML @ 75 mls/hr IV. 1750 / 1750 175 / 175 CONT .[id number] [facility] Rx#:[id number] Magnesium Sulfate 1 gm/D5W 100 100 / 100 ml Premix 100 ML @ 100 mls/hr IV.SIG ONCE ONE Rx#:[id number] Oral 480 / 480 480 / 480 Other: # Voids 3 # Urine Diapers 2 Date of Last Bowel Movement 05/19/18 05/20/18 05/20/18 # Bowel Movements 2 Narrative: GENERAL: NAD SKIN: Warm and dry. Multiple papular rash left shoulder towards left upper back area, bilateral lower extremities. Spider angiomas chest and face. HEENT: Normocephalic. Pupils equal round and reactive. Nose without bleeding. Airway patent. NECK: Trachea midline. CARDIOVASCULAR: Regular rate and rhythm without murmurs, gallops, or rubs. RESPIRATORY: Coarse breath sounds. No wheezes, rales, or rhonchi. GASTROINTESTINAL: Abdomen soft, non-tender, mildly distended. Bowel Sounds normoactive x4. MUSCULOSKELETAL: Extremities without clubbing, cyanosis. Bilateral lower extremity edema +2 NEUROLOGICAL: Awake and alert. Oriented to place, person. No focal neuro deficit. Moves all extremities. Normal speech. Results - Labs CBC & Chem 7: 05/20/18 05:45 05/20/18 05:45 Laboratory Results - last 24 hr 05/19/18 05/20/18 05/20/18 21:51 05:45 05:45 WBC 3.6 L RBC 2.80 L Hgb 10.6 L Hct 29.7 L MCV 106.3 H D MCH 38.0 H MCHC 35.8 RDW 14.2 Plt Count 139 L MPV 7.0 Neut % (Auto) 77.1 H Lymph % (Auto) 17.0 [place] % (Auto) 4.1 Eos % (Auto) 1.1 Baso % (Auto) 0.7 Neut # (Auto) 2.8 Lymph # (Auto) 0.6 L [place] # (Auto) 0.1 Eos # (Auto) 0.0 Baso # (Auto) 0.0 WBC Differential . Differential Comment Auto diff final Sodium 133 L Potassium 2.3 L* D Chloride 96 L Carbon Dioxide 26.8 Anion Gap 10 BUN 3 L Creatinine 0.48 L Estimated GFR Greater than 89 Random Glucose 82 Calcium 6.9 L* Prot Corrected Calcium 7.8 L Magnesium 1.0 L D Total Bilirubin 2.3 H AST 107 H ALT 74 H Alkaline Phosphatase 373 H Total Protein 5.4 L Albumin 2.4 L Stl C.difficile DNA Amp Negative St C. diff Tox Epid 027 Negative Microbiology 05/19/18 10:30 Nasal Wash Influenza Types A,B Antigen - Final Negative for FLU A and B antigen Infection due to influenza A or B cannot be ruled out since the antigen present in the sample may be below the detection limit of the test. Assessment and Plan - Plan 57-year-old female with 1. EtOH withdrawal - Counseled on EtOH cessation - CIWA protocol, Rally pack and add Librium as needed 2. Hyponatremia of beer potomania -Improving, discontinue IV fluid - Continue to monitor 3. Hypokalemia -Replace electrolytes and monitor 4. Hypomagnesemia -Replace electrolytes and monitor 5. Bronchitis -Currently on scheduled DuoNeb with albuterol PRN as well as azithromycin - Mucinex BID - influenza Ag negative - Supplemental O2 PRN 6. Shortness of breath - Likely secondary to above but given patient's chronic EtOH abuse obtaining 2D echo to assess for cardiomyopathy - Supplemental O2 and pulmonary toilet - No lower extremity edema noted on today's exam - BNP 139 7. Transaminitis - AST and ALT elevated with AST>ALT consistent with alcoholic liver disease - Total bili mildly elevated, alkaline phosphatase elevated - Hepatitis panel negative - Liver u/s noted with evidence of hepatic steatosis - Avoid hepatotoxic agents 8. Tobacco abuse Tobacco cessation counseling provided Start nicotine patch DVT prophylaxis: SCDs
[2018-05-21 06:50] LABS: Anion Gap 9 meq/L (5-15); Blood Urea Nitrogen 3 mg/dL (7-18); Calcium 7.3 mg/dL (8.5-10.1); Carbon Dioxide 24.9 meq/L (21.0-32.0); Chloride 99 meq/L (98-107); Glomerular Filtration Rate Greater Than 89 mL/min (>89); Glucose,Random 93 mg/dL (74-106); Potassium 3.4 meq/L (3.5-5.1); Sodium 133 meq/L (136-145)
[2018-05-21 07:15] LABS: Calcium-Albumin Corrected 8.2 mg/dL (8.5-10.1); Total Protein 5.4 g/dL (6.4-8.2)
[2018-05-21] MEDS: Folic Acid 1 MG Tablet PO SCH (09:37)
[2018-05-21] MEDS: Azithromycin 250 MG Tablet PO SCH (09:37)
[2018-05-21] MEDS: guaiFENesin 600 MG ER Tablet PO SCH ×2 (09:37→20:48)
[2018-05-21] MEDS: LORazepam 1 MG Tablet PO PRN ×3 (09:37→20:48)
[2018-05-21] MEDS: Multivitamin/Minerals Therapeutic Tablet PO SCH (09:37)
--- NOTE | 2018-05-21 11:21 | P.PN ---
Subjective Interval history: Follow-up alcohol withdrawal/hypokalemia May 20, 2018-patient seen and examined, CIWA score of 10, still tremulous, denies any chest pain or heart palpitations. Very anxious. Sister by the bedside. May 21, 2018-patient seen and examined,CIWA score of 9 mostly from tremors. Otherwise vitals stable. Potassium improving. Patient denies any chest pain or shortness of breath. Still wobbly and weak to stand on her feet Physical Exam Vital signs: Vital Signs 05/20/18 11:47 05/20/18 12:00 05/20/18 13:00 Temperature Pulse Rate 86 96 H 82 Respiratory Rate 16 20 Blood Pressure 112/60 Pulse Oximetry 97 05/20/18 14:00 05/20/18 15:00 05/20/18 16:00 Temperature Pulse Rate 70 82 82 Respiratory Rate 20 Blood Pressure 110/62 Pulse Oximetry 97 05/20/18 16:35 05/20/18 17:00 05/20/18 18:00 Temperature Pulse Rate 70 72 82 Respiratory Rate 18 Blood Pressure Pulse Oximetry 05/20/18 19:00 05/20/18 20:00 05/20/18 20:05 Temperature 98.7 F Pulse Rate 82 85 83 Respiratory Rate 16 17 Blood Pressure 128/85 Pulse Oximetry 99 99 05/20/18 21:00 05/20/18 22:00 05/20/18 23:00 Temperature Pulse Rate 102 H 90 88 Respiratory Rate Blood Pressure Pulse Oximetry 05/21/18 00:00 05/21/18 00:38 05/21/18 01:00 Temperature 98.5 F Pulse Rate 97 H 90 96 H Respiratory Rate 16 22 Blood Pressure 135/82 Pulse Oximetry 98 98 05/21/18 02:00 05/21/18 03:00 05/21/18 03:36 Temperature Pulse Rate 96 H 84 99 H Respiratory Rate 17 Blood Pressure Pulse Oximetry 99 05/21/18 04:00 05/21/18 05:00 05/21/18 06:00 Temperature Pulse Rate 86 80 80 Respiratory Rate 16 Blood Pressure Pulse Oximetry 92 L 05/21/18 07:00 05/21/18 07:25 05/21/18 08:00 Temperature 98.1 F Pulse Rate 82 88 98 H Respiratory Rate 16 20 Blood Pressure 108/68 Pulse Oximetry 100 98 05/21/18 09:00 05/21/18 10:00 05/21/18 11:14 Temperature Pulse Rate 70 78 91 H Respiratory Rate 16 Blood Pressure Pulse Oximetry Intake & Output 05/20/18 05/21/18 05/21/18 18:59 06:59 18:59 Intake Total 955 / 955 480 / 480 Output Total 600 / 600 1350 / 1350 Balance 355 / 355 -870 / -870 Weight 66 kg Intake: IV 275 / 275 NS Inj 1,000 ML @ 75 mls/hr IV. 175 / 175 CONT .[id number] [facility] Rx#:[id number] Magnesium Sulfate 1 gm/D5W 100 100 / 100 ml Premix 100 ML @ 100 mls/hr IV.SIG ONCE ONE Rx#:[id number] Oral 680 / 680 480 / 480 Output: Urine 600 / 600 1350 / 1350 Other: Date of Last Bowel Movement 05/20/18 05/20/18 Narrative: GENERAL: NAD SKIN: Warm and dry. Multiple papular rash left shoulder towards left upper back area, bilateral lower extremities. Spider angiomas chest and face. HEENT: Normocephalic. Pupils equal round and reactive. Nose without bleeding. Airway patent. NECK: Trachea midline. CARDIOVASCULAR: Regular rate and rhythm without murmurs, gallops, or rubs. RESPIRATORY: Coarse breath sounds. No wheezes, rales, or rhonchi. GASTROINTESTINAL: Abdomen soft, non-tender, mildly distended. Bowel Sounds normoactive x4. MUSCULOSKELETAL: Extremities without clubbing, cyanosis. Bilateral lower extremity edema +2 NEUROLOGICAL: Awake and alert. Oriented to place, person. No focal neuro deficit. Moves all extremities. Normal speech. Results - Labs CBC & Chem 7: 05/20/18 05:45 05/21/18 05:10 Laboratory Results - last 24 hr 05/21/18 05:10 Sodium 133 L Potassium 3.4 L D Chloride 99 Carbon Dioxide 24.9 Anion Gap 9 BUN 3 L Creatinine 0.54 Estimated GFR Greater than 89 Random Glucose 93 Calcium 7.3 L* Prot Corrected Calcium 8.2 L Total Protein 5.4 L Assessment and Plan - Plan 57-year-old female with 1. EtOH withdrawal - Counseled on EtOH cessation - CIWA protocol, Rally pack and add Librium as needed -Patient is still unstable 2. Hyponatremia of beer potomania -Improving, discontinue IV fluid - Continue to monitor 3. Hypokalemia -Continue to replace electrolytes and monitor 4. Hypomagnesemia -Replace electrolytes and monitor 5. Bronchitis -Currently on scheduled DuoNeb with albuterol PRN as well as azithromycin - Mucinex BID - influenza Ag negative - Supplemental O2 PRN 6. Shortness of breath-improving - Likely secondary to above but given patient's chronic EtOH abuse obtaining 2D echo to assess for cardiomyopathy - Supplemental O2 and pulmonary toilet - No lower extremity edema noted on today's exam - BNP 139 7. Transaminitis - AST and ALT elevated with AST>ALT consistent with alcoholic liver disease - Total bili mildly elevated, alkaline phosphatase elevated - Hepatitis panel negative - Liver u/s noted with evidence of hepatic steatosis - Avoid hepatotoxic agents 8. Tobacco abuse Tobacco cessation counseling provided Continue nicotine patch DVT prophylaxis: SCDs
[2018-05-21] MEDS: Loperamide 2 MG Capsule PO PRN (20:51)
[2018-05-22 07:58] LABS: Alanine Aminotransferase 73 U/L (10-53); Albumin 2.5 g/dL (3.4-5.0); Anion Gap 11 meq/L (5-15); Aspartate Aminotransferase 87 U/L (15-37); Blood Urea Nitrogen 5 mg/dL (7-18); Calcium 7.6 mg/dL (8.5-10.1); Carbon Dioxide 21.6 meq/L (21.0-32.0); Chloride 101 meq/L (98-107); Glomerular Filtration Rate Greater Than 89 mL/min (>89); Glucose,Random 90 mg/dL (74-106); Potassium 3.9 meq/L (3.5-5.1); Sodium 134 meq/L (136-145)
[2018-05-22 07:59] LABS: Alkaline Phosphatase 342 U/L (45-117); Total Protein 5.8 g/dL (6.4-8.2)
[2018-05-22] MEDS: Multivitamin/Minerals Therapeutic Tablet PO SCH (09:15)
[2018-05-22] MEDS: guaiFENesin 600 MG ER Tablet PO SCH ×2 (09:15→20:32)
[2018-05-22] MEDS: Folic Acid 1 MG Tablet PO SCH (09:16)
[2018-05-22] MEDS: Azithromycin 250 MG Tablet PO SCH (09:16)
[2018-05-22] MEDS: LORazepam 1 MG Tablet PO PRN ×3 (09:24→22:05)
--- NOTE | 2018-05-22 12:43 | P.PN ---
Subjective Interval history: Follow-up alcohol withdrawal/hypokalemia May 20, 2018-patient seen and examined, CIWA score of 10, still tremulous, denies any chest pain or heart palpitations. Very anxious. Sister by the bedside. May 21, 2018-patient seen and examined,CIWA score of 9 mostly from tremors. Otherwise vitals stable. Potassium improving. Patient denies any chest pain or shortness of breath. Still wobbly and weak to stand on her feet May 22, 2018-patient seen and examined, CIWA score of 8. No acute event overnight. Physical Exam Vital signs: Vital Signs 05/21/18 13:00 05/21/18 14:00 05/21/18 15:00 Temperature Pulse Rate 82 84 80 Respiratory Rate Blood Pressure Pulse Oximetry 05/21/18 16:00 05/21/18 16:09 05/21/18 17:00 Temperature 98.0 F Pulse Rate 91 H 83 90 Respiratory Rate 20 16 Blood Pressure 120/77 Pulse Oximetry 98 05/21/18 18:00 05/21/18 19:00 05/21/18 20:00 Temperature 99.2 F Pulse Rate 80 111 H 84 Respiratory Rate 20 Blood Pressure 124/79 Pulse Oximetry 98 05/21/18 20:33 05/21/18 21:00 05/21/18 22:00 Temperature Pulse Rate 96 H 102 H 102 H Respiratory Rate 25 H Blood Pressure Pulse Oximetry 99 05/21/18 23:00 05/21/18 23:50 05/22/18 00:00 Temperature Pulse Rate 94 H 107 H 88 Respiratory Rate 20 Blood Pressure 134/82 Pulse Oximetry 99 05/22/18 00:39 05/22/18 01:00 05/22/18 02:00 Temperature Pulse Rate 72 94 H 88 Respiratory Rate 13 Blood Pressure Pulse Oximetry 05/22/18 03:00 05/22/18 03:43 05/22/18 03:53 Temperature Pulse Rate 86 87 87 Respiratory Rate 16 20 Blood Pressure 154/93 H Pulse Oximetry 99 05/22/18 04:00 05/22/18 05:00 05/22/18 06:00 Temperature Pulse Rate 86 90 84 Respiratory Rate Blood Pressure Pulse Oximetry 05/22/18 07:00 05/22/18 07:40 05/22/18 08:00 Temperature 97.7 F Pulse Rate 86 86 90 Respiratory Rate 17 20 Blood Pressure 137/79 Pulse Oximetry 97 99 05/22/18 09:00 05/22/18 10:00 05/22/18 11:00 Temperature Pulse Rate 84 82 88 Respiratory Rate Blood Pressure Pulse Oximetry 05/22/18 11:42 05/22/18 12:00 Temperature Pulse Rate 79 76 Respiratory Rate 20 Blood Pressure 122/79 Pulse Oximetry 98 Intake & Output 05/21/18 05/22/18 05/22/18 18:59 06:59 18:59 Intake Total 600 / 600 240 / 240 Output Total 850 / 850 Balance 600 / 600 -610 / -610 Weight 64.5 kg Intake: Oral 600 / 600 240 / 240 Output: Urine 850 / 850 Other: # Voids 4 Date of Last Bowel Movement 05/21/18 05/21/18 Narrative: GENERAL: NAD and sitting in a chair SKIN: Warm and dry. Multiple papular rash left shoulder towards left upper back area, bilateral lower extremities. Spider angiomas chest and face. HEENT: Normocephalic. Pupils equal round and reactive. Nose without bleeding. Airway patent. NECK: Trachea midline. CARDIOVASCULAR: Regular rate and rhythm without murmurs, gallops, or rubs. RESPIRATORY: Coarse breath sounds. No wheezes, rales, or rhonchi. GASTROINTESTINAL: Abdomen soft, non-tender, mildly distended. Bowel Sounds normoactive x4. MUSCULOSKELETAL: Extremities without clubbing, cyanosis. Bilateral lower extremity edema +2 NEUROLOGICAL: Awake and alert. Oriented to place, person. No focal neuro deficit. Moves all extremities. Normal speech. Results - Labs CBC & Chem 7: 05/20/18 05:45 05/22/18 07:21 Laboratory Results - last 24 hr 05/22/18 07:21 Sodium 134 L Potassium 3.9 Chloride 101 Carbon Dioxide 21.6 Anion Gap 11 BUN 5 L Creatinine 0.63 Estimated GFR Greater than 89 Random Glucose 90 Calcium 7.6 L Total Bilirubin 1.3 H AST 87 H ALT 73 H Alkaline Phosphatase 342 H Total Protein 5.8 L Albumin 2.5 L Assessment and Plan - Plan 57-year-old female with 1. EtOH withdrawal - Counseled on EtOH cessation - CIWA protocol, Rally pack and add Librium as needed -Patient is still unstable 2. Hyponatremia of beer potomania -Improving, s/p IVF - Continue to monitor 3. Hypokalemia -Resolved post replacement 4. Hypomagnesemia -Replace electrolytes and monitor 5. Bronchitis -Currently on scheduled DuoNeb with albuterol PRN as well as azithromycin - Mucinex BID - influenza Ag negative - Supplemental O2 PRN 6. Shortness of breath-improved - Likely secondary to above but given patient's chronic EtOH abuse obtaining 2D echo to assess for cardiomyopathy - Supplemental O2 and pulmonary toilet 7. Transaminitis - AST and ALT elevated with AST>ALT consistent with alcoholic liver disease - Total bili mildly elevated, alkaline phosphatase elevated - Hepatitis panel negative - Liver u/s noted with evidence of hepatic steatosis - Avoid hepatotoxic agents 8. Tobacco abuse Tobacco cessation counseling provided Continue nicotine patch DVT prophylaxis: SCDs
[2018-05-23] MEDS: LORazepam 1 MG Tablet PO PRN ×3 (03:01→20:57)
[2018-05-23] MEDS: guaiFENesin 600 MG ER Tablet PO SCH ×2 (08:27→20:22)
[2018-05-23] MEDS: Multivitamin/Minerals Therapeutic Tablet PO SCH (08:27)
[2018-05-23] MEDS: Folic Acid 1 MG Tablet PO SCH (08:27)
[2018-05-23] MEDS: Azithromycin 250 MG Tablet PO SCH (08:27)
--- NOTE | 2018-05-23 12:33 | P.PN ---
Subjective Interval history: Follow-up alcohol withdrawal/hypokalemia May 20, 2018-patient seen and examined, CIWA score of 10, still tremulous, denies any chest pain or heart palpitations. Very anxious. Sister by the bedside. May 21, 2018-patient seen and examined,CIWA score of 9 mostly from tremors. Otherwise vitals stable. Potassium improving. Patient denies any chest pain or shortness of breath. Still wobbly and weak to stand on her feet May 22, 2018-patient seen and examined, CIWA score of 8. No acute event overnight. May 23, 2018-patient seen and examined, appears stable. No change in no acute event overnight. Afebrile. Physical Exam Vital signs: Vital Signs 05/22/18 13:00 05/22/18 13:10 05/22/18 14:00 Temperature Pulse Rate 80 93 H 82 Respiratory Rate 22 Blood Pressure Pulse Oximetry 05/22/18 15:00 05/22/18 16:00 05/22/18 16:34 Temperature 97.8 F Pulse Rate 98 H 18 L 92 H Respiratory Rate 18 16 Blood Pressure 129/78 Pulse Oximetry 98 05/22/18 17:00 05/22/18 18:00 05/22/18 19:00 Temperature Pulse Rate 86 72 93 H Respiratory Rate Blood Pressure Pulse Oximetry 05/22/18 20:00 05/22/18 21:00 05/22/18 21:09 Temperature 98.3 F Pulse Rate 90 100 H 86 Respiratory Rate 17 16 Blood Pressure 155/93 H Pulse Oximetry 98 98 05/22/18 22:00 05/22/18 23:00 05/23/18 00:00 Temperature 98.6 F Pulse Rate 87 83 94 H Respiratory Rate 18 Blood Pressure 138/72 Pulse Oximetry 96 05/23/18 00:46 05/23/18 01:00 05/23/18 02:00 Temperature Pulse Rate 87 88 85 Respiratory Rate 20 Blood Pressure Pulse Oximetry 97 05/23/18 03:00 05/23/18 04:00 05/23/18 05:00 Temperature 98 F Pulse Rate 83 93 H 79 Respiratory Rate 16 Blood Pressure 140/92 H Pulse Oximetry 97 05/23/18 06:00 05/23/18 07:00 05/23/18 07:39 Temperature Pulse Rate 77 74 Respiratory Rate Blood Pressure Pulse Oximetry 96 05/23/18 08:00 05/23/18 09:00 05/23/18 10:00 Temperature 97.9 F Pulse Rate 92 H 82 84 Respiratory Rate 18 Blood Pressure 125/81 Pulse Oximetry 95 05/23/18 11:00 05/23/18 12:00 Temperature 98.1 F Pulse Rate 83 86 Respiratory Rate 18 Blood Pressure 138/89 Pulse Oximetry 96 Intake & Output 05/22/18 05/23/18 05/23/18 18:59 06:59 18:59 Intake Total 680 / 680 240 / 240 Output Total 300 / 300 Balance 680 / 680 -60 / -60 Weight 64.5 kg Intake: Oral 680 / 680 240 / 240 Output: Urine 300 / 300 Other: # Voids 3 Date of Last Bowel Movement 05/22/18 05/22/18 Narrative: GENERAL: NAD and sitting in a chair SKIN: Warm and dry. Multiple papular rash left shoulder towards left upper back area, bilateral lower extremities. Spider angiomas chest and face. HEENT: Normocephalic. Pupils equal round and reactive. Nose without bleeding. Airway patent. NECK: Trachea midline. CARDIOVASCULAR: Regular rate and rhythm without murmurs, gallops, or rubs. RESPIRATORY: Coarse breath sounds. No wheezes, rales, or rhonchi. GASTROINTESTINAL: Abdomen soft, non-tender, mildly distended. Bowel Sounds normoactive x4. MUSCULOSKELETAL: Extremities without clubbing, cyanosis. Bilateral lower extremity edema +2 NEUROLOGICAL: Awake and alert. Oriented to place, person. No focal neuro deficit. Moves all extremities. Normal speech. Results - Labs CBC & Chem 7: 05/20/18 05:45 05/22/18 07:21 - Procedures none Assessment and Plan - Plan 57-year-old female with 1. EtOH withdrawal - Counseled on EtOH cessation - CIWA protocol, Rally pack and Librium as needed 2. Hyponatremia of beer potomania -Improving, s/p IVF - Continue to monitor 3. Hypokalemia -Resolved post replacement 4. Hypomagnesemia -Replace electrolytes and monitor 5. Bronchitis -Currently on scheduled DuoNeb with albuterol PRN as well as azithromycin; d/c azithromycin - Mucinex BID - influenza Ag negative - Supplemental O2 PRN 6. Shortness of breath-improved - Likely secondary to above but given patient's chronic EtOH abuse - Supplemental O2 and pulmonary toilet 7. Transaminitis - AST and ALT elevated with AST>ALT consistent with alcoholic liver disease - Total bili mildly elevated, alkaline phosphatase elevated - Hepatitis panel negative - Liver u/s noted with evidence of hepatic steatosis - Avoid hepatotoxic agents 8. Tobacco abuse Tobacco cessation counseling provided Continue nicotine patch DVT prophylaxis: SCDs
[2018-05-24] MEDS: Multivitamin/Minerals Therapeutic Tablet PO SCH (08:19)
[2018-05-24] MEDS: LORazepam 1 MG Tablet PO PRN (08:19)
[2018-05-24] MEDS: guaiFENesin 600 MG ER Tablet PO SCH ×2 (08:19→21:04)
[2018-05-24] MEDS: Folic Acid 1 MG Tablet PO SCH (08:20)
--- NOTE | 2018-05-24 12:05 | P.PN ---
Subjective Interval history: Follow-up alcohol withdrawal/hypokalemia May 24, 2018-patient seen and examined, no change and patient stable.Afebrile Physical Exam Vital signs: Vital Signs 05/23/18 13:00 05/23/18 14:00 05/23/18 15:00 Temperature Pulse Rate 77 88 83 Respiratory Rate Blood Pressure Pulse Oximetry 05/23/18 16:00 05/23/18 17:00 05/23/18 18:00 Temperature 97.7 F Pulse Rate 82 82 83 Respiratory Rate 18 Blood Pressure 154/89 H Pulse Oximetry 96 05/23/18 19:00 05/23/18 19:24 05/23/18 20:00 Temperature 98.4 F Pulse Rate 85 88 78 Respiratory Rate 16 Blood Pressure 141/94 H Pulse Oximetry 97 97 05/23/18 20:12 05/23/18 21:00 05/23/18 22:00 Temperature Pulse Rate 79 75 Respiratory Rate Blood Pressure Pulse Oximetry 97 05/23/18 23:00 05/24/18 00:00 05/24/18 01:00 Temperature 98.8 F Pulse Rate 77 82 75 Respiratory Rate 17 Blood Pressure 147/88 H Pulse Oximetry 93 L 05/24/18 02:00 05/24/18 03:00 05/24/18 04:00 Temperature 98.9 F Pulse Rate 73 74 80 Respiratory Rate 18 Blood Pressure 151/93 H Pulse Oximetry 93 L 05/24/18 05:00 05/24/18 06:00 05/24/18 07:00 Temperature Pulse Rate 96 H 72 73 Respiratory Rate Blood Pressure Pulse Oximetry 05/24/18 08:00 Temperature 98 F Pulse Rate 88 Respiratory Rate 18 Blood Pressure 119/79 Pulse Oximetry 97 Intake & Output 05/23/18 05/24/18 05/24/18 18:59 06:59 18:59 Intake Total 960 / 960 240 / 240 Output Total 850 / 850 Balance 960 / 960 -610 / -610 Weight 64.4 kg Intake: Oral 960 / 960 240 / 240 Output: Urine 850 / 850 Other: # Voids 6 Date of Last Bowel Movement 05/23/18 05/24/18 # Bowel Movements 4 1 Narrative: GENERAL: NAD SKIN: Warm and dry. Multiple papular rash left shoulder towards left upper back area, bilateral lower extremities. Spider angiomas chest and face. HEENT: Normocephalic. Pupils equal round and reactive. Nose without bleeding. Airway patent. NECK: Trachea midline. CARDIOVASCULAR: Regular rate and rhythm without murmurs, gallops, or rubs. RESPIRATORY: Coarse breath sounds. No wheezes, rales, or rhonchi. GASTROINTESTINAL: Abdomen soft, non-tender, mildly distended. Bowel Sounds normoactive x4. MUSCULOSKELETAL: Extremities without clubbing, cyanosis. Bilateral lower extremity edema +2 NEUROLOGICAL: Awake and alert. Oriented to place, person. No focal neuro deficit. Moves all extremities. Normal speech. Results - Labs CBC & Chem 7: 05/20/18 05:45 05/22/18 07:21 - Procedures none Assessment and Plan - Plan 57-year-old female with 1. EtOH withdrawal - Counseled on EtOH cessation - CIWA protocol, Rally pack and Librium as needed 2. Hyponatremia of beer potomania -Improving, s/p IVF - Continue to monitor 3. Hypokalemia -Resolved post replacement 4. Hypomagnesemia -Replace electrolytes and monitor 5. Bronchitis -Currently on scheduled DuoNeb with albuterol PRN as well as azithromycin; d/c azithromycin - Mucinex BID - influenza Ag negative - Supplemental O2 PRN 6. Shortness of breath-improved - Likely secondary to above but given patient's chronic EtOH abuse - Supplemental O2 and pulmonary toilet 7. Transaminitis - AST and ALT elevated with AST>ALT consistent with alcoholic liver disease - Total bili mildly elevated, alkaline phosphatase elevated - Hepatitis panel negative - Liver u/s noted with evidence of hepatic steatosis - Avoid hepatotoxic agents 8. Tobacco abuse Tobacco cessation counseling provided Continue nicotine patch DVT prophylaxis: SCDs Transfer to [facility] Discharge Planning: Awaiting placement disposition per case packer and sealer
[2018-05-24] MEDS ORDERED: Loperamide 2 MG Capsule PO PRN (17:31)
[2018-05-24] MEDS: Loperamide 2 MG Capsule PO PRN (17:50)
[2018-05-25 05:17] LABS: Baso # (Auto) 0.1 th/mm3 (0.0-0.2); Baso % (Auto) 1.1 % (0.0-2.0); Eos # (Auto) 0.1 th/mm3 (0.0-0.4); Eos % (Auto) 1.3 % (0.0-4.0); Hemoglobin 11.1 gm/dL (11.6-15.3); Lymph # (Auto) 0.9 th/mm3 (1.0-4.8); Lymph % (Auto) 15.9 % (9.0-44.0); Mean Corpuscular HGB Conc 35.6 % (32.0-36.0); Mean Corpuscular Hemoglobin 38.2 pg (27.0-34.0); Mean Corpuscular Volume 107.2 fL (80.0-100.0); Mean Platelet Volume 7.1 fL (7.0-11.0); Mono # (Auto) 0.5 th/mm3 (0.0-0.9); Mono % (Auto) 8.5 % (0.0-8.0); Neut # (Auto) 4.1 th/mm3 (1.8-7.7); Neut % (Auto) 73.2 % (16.0-70.0); Platelet Count 178 th/mm3 (150-450); Red Cell Distribution Width 14.4 % (11.6-17.2); White Blood Count 5.5 th/mm3 (4.0-11.0)
[2018-05-25 05:38] LABS: Albumin 2.7 g/dL (3.4-5.0); Anion Gap 11 meq/L (5-15); Aspartate Aminotransferase 79 U/L (15-37); Blood Urea Nitrogen 12 mg/dL (7-18); Carbon Dioxide 22.6 meq/L (21.0-32.0); Chloride 99 meq/L (98-107); Glomerular Filtration Rate 83 mL/min (>89); Glucose,Random 82 mg/dL (74-106); Potassium 3.3 meq/L (3.5-5.1); Sodium 133 meq/L (136-145)
[2018-05-25 05:47] LABS: Alanine Aminotransferase 83 U/L (10-53); Alkaline Phosphatase 289 U/L (45-117)
[2018-05-25] MEDS ORDERED: Magnesium Sulfate Inj 4 GM in Dextrose 5% in Water Inj 100 ML IV.SIG ONE ×2 (09:26)
--- NOTE | 2018-05-25 09:37 | P.PNIM ---
Subjective Interval history: Follow up alcohol withdrawal, hypokalemia, hypomagnesemia, hyponatremia Patient reports 6 episodes of diarrhea since midnight. No significant abdominal pain or tenderness. She denies nausea or vomiting. CIWA score < 9. Denies tremors. Tmax documented as 100 F overnight. Patient denies cough, dysuria, urinary urgency or frequency. Will replete electrolytes, discussed plan of care with patient. Physical Exam Vital signs: Last Vital Signs Temp 97.7 F 05/25/18 04:00 Pulse 78 05/25/18 04:00 Resp 17 05/25/18 04:00 BP 143/73 H 05/25/18 04:00 Pulse Ox 95 05/25/18 04:00 Intake & Output 05/23/18 05/24/18 05/25/18 05/26/18 06:59 06:59 06:59 06:59 Intake Total 920 / 920 1200 / 1200 1220 / 1220 Output Total 300 / 300 850 / 850 802 / 802 Balance 620 / 620 350 / 350 418 / 418 Weight 64.5 kg 64.4 kg 64.4 kg Narrative: GENERAL: NAD SKIN: Warm and dry. Multiple papular rash left shoulder towards left upper back area, bilateral lower extremities. Spider angiomas chest and face. HEENT: Normocephalic. Pupils equal round and reactive. Nose without bleeding. Airway patent. NECK: Trachea midline. CARDIOVASCULAR: Regular rate and rhythm without murmurs, gallops, or rubs. RESPIRATORY: Coarse breath sounds. No wheezes, rales, or rhonchi. GASTROINTESTINAL: Abdomen soft, non-tender, mildly distended. Bowel Sounds normoactive x4. MUSCULOSKELETAL: Extremities without clubbing, cyanosis. Bilateral lower extremity edema +2 NEUROLOGICAL: Awake and alert. Oriented to place, person. No focal neuro deficit. Moves all extremities. Normal speech. Results Labs CBC & Chem 7: 05/25/18 04:56 05/25/18 04:56 Procedures Procedures: none Assessment and Plan Plan Patient is a 57 y/o female with a past medical history significant for hypertension and ETOH dependence. She presented to the hospital complaining of shortness of breath, dehydration and diarrhea. EtOH withdrawal - evaluated 05/25/18 -Counseled on EtOH cessation -CIWA protocol, Rally pack and Librium as needed Hyponatremia of beer potomania - evaluated 05/25/18 -Improving s/p IVF -Continue to monitor Hypokalemia - evaluated 05/25/18 -K 3.3, replacement ordered PO -repeat potassium level this afternoon and continue replacement if indicated Hypomagnesemia - evaluated 05/25/18 -Mg 0.8, replace IV -repeat Mg level this afternoon, continue to replete if indicated Bronchitis - evaluated 05/25/18 -currently on DuoNeb with albuterol PRN as well as azithromycin; d/c azithromycin -Mucinex BID -influenza Ag negative -supplemental O2 PRN Shortness of breath- evaluated 05/25/18, improved -likely secondary to above but given patient's chronic EtOH abuse -supplemental O2 and pulmonary toilet Transaminitis - evaluated 05/25/18, slightly improved - AST and ALT elevated with AST>ALT consistent with alcoholic liver disease - Total bili mildly elevated, alkaline phosphatase elevated - Hepatitis panel negative - Liver u/s noted with evidence of hepatic steatosis - Avoid hepatotoxic agents Tobacco abuse -Tobacco cessation counseling provided -Continue nicotine patch MDM: self Code: Full GI ppx: PO intake DVT ppx: pt ambulatory, SCD's
[2018-05-25] MEDS: guaiFENesin 600 MG ER Tablet PO SCH ×2 (10:02→21:44)
[2018-05-25] MEDS: Folic Acid 1 MG Tablet PO SCH (10:02)
[2018-05-25] MEDS: Multivitamin/Minerals Therapeutic Tablet PO SCH (10:03)
[2018-05-25 17:54] LABS: Potassium 3.4 meq/L (3.5-5.1)
[2018-05-25 17:56] LABS: Magnesium 2.2 mg/dL (1.5-2.5)
[2018-05-26 05:07] LABS: Hematocrit 33.5 % (35.0-46.0); Hemoglobin 11.9 gm/dL (11.6-15.3); Mean Corpuscular HGB Conc 35.4 % (32.0-36.0); Mean Corpuscular Volume 107.2 fL (80.0-100.0); Mean Platelet Volume 7.1 fL (7.0-11.0); Platelet Count 219 th/mm3 (150-450); Red Blood Count 3.13 mil/mm3 (4.00-5.30); Red Cell Distribution Width 14.4 % (11.6-17.2); White Blood Count 6.3 th/mm3 (4.0-11.0)
[2018-05-26 05:34] LABS: Calcium 8.1 mg/dL (8.5-10.1); Carbon Dioxide 19.5 meq/L (21.0-32.0); Potassium 3.4 meq/L (3.5-5.1)
[2018-05-26] MEDS: guaiFENesin 600 MG ER Tablet PO SCH ×2 (08:40→20:57)
[2018-05-26] MEDS: Multivitamin/Minerals Therapeutic Tablet PO SCH (08:40)
[2018-05-26] MEDS: Folic Acid 1 MG Tablet PO SCH (08:40)
[2018-05-26] MEDS: Loperamide 2 MG Capsule PO PRN (08:53)
--- NOTE | 2018-05-26 09:33 | P.PN ---
Subjective Interval history: Follow-up visit for alcohol withdrawals, electrolyte abnormality and diarrhea. Patient seen and examined sitting up in bed appears to be in no acute distress. She complains of ongoing liquid stools, for today and overnight. Denies any fevers, chills, nausea or vomiting. No reports of shortness of breath or cough. She is also requesting Adderall, states that she got this when she was here. She is not normally on this medication at home. Physical Exam Vital signs: Vital Signs 05/25/18 12:00 05/25/18 17:14 05/25/18 19:35 Temperature 98 F 99.5 F Pulse Rate 92 H 83 Respiratory Rate 18 18 Blood Pressure 120/77 147/81 H Pulse Oximetry 99 99 96 05/26/18 00:00 05/26/18 04:00 Temperature 97.9 F 98.2 F Pulse Rate 74 70 Respiratory Rate 18 18 Blood Pressure 141/76 H 139/88 Pulse Oximetry 97 96 Intake & Output 05/25/18 05/26/18 05/26/18 18:59 06:59 18:59 Intake Total 200 / 200 50 / 50 Output Total 3 / 3 Balance 197 / 197 50 / 50 Weight 63.7 kg Intake: IV 200 / 200 Magnesium Sulfate Inj 4 GM In 200 / 200 D5W Inj 100 ML @ 25 mls/hr IV. SIG ONCE ONE Rx#:[id number] Oral 50 / 50 Output: Urine/Stool Mix 3 / 3 Other: # Voids 1 5 Date of Last Bowel Movement 05/25/18 05/26/18 05/26/18 # Bowel Movements 5 Narrative: GENERAL: Awake alert, no acute distress. SKIN: Warm and dry. Spider angiomas chest and face. HEENT: Normocephalic. Pupils equal round and reactive. Nose without bleeding. Airway patent. NECK: Trachea midline. CARDIOVASCULAR: Regular rate and rhythm without murmurs, gallops, or rubs. RESPIRATORY: Breath sounds diminished throughout with no wheezes, rales, or rhonchi. GASTROINTESTINAL: Abdomen soft, non-tender, nondistended. Bowel Sounds normoactive x4. MUSCULOSKELETAL: Extremities without clubbing, cyanosis. Bilateral lower extremity trace edema. NEUROLOGICAL: Awake and alert. No focal neuro deficit. Moves all extremities. Normal speech. Results - Labs CBC & Chem 7: 05/26/18 04:53 05/26/18 04:53 Laboratory Results - last 24 hr 05/25/18 05/26/18 05/26/18 16:45 04:53 04:53 WBC 6.3 RBC 3.13 L Hgb 11.9 Hct 33.5 L MCV 107.2 H MCH 38.0 H MCHC 35.4 RDW 14.4 Plt Count 219 MPV 7.1 Sodium 131 L Potassium 3.4 L 3.4 L Chloride 100 Carbon Dioxide 19.5 L Anion Gap 12 BUN 10 Creatinine 0.71 Estimated GFR 85 L Random Glucose 80 Calcium 8.1 L Magnesium 2.2 D - Procedures none Assessment and Plan - Plan Patient is a 57 y/o female with a past medical history significant for hypertension and ETOH dependence. She presented to the hospital complaining of shortness of breath, dehydration and diarrhea. EtOH withdrawal -EtOH cessation encouraged -CIWA protocol, DC Librium since this has not been used in about 24hrs. - Rally pack Hyponatremia, improved -Improving s/p IVF -Continue to monitor Hypokalemia -K 3.4, likely secondary to ongoing diarrhea, replacement PO -BMP tomorrow Hypomagnesemia -replaced, recheck stable Bronchitis - evaluated 05/25/18 -currently on DuoNeb with albuterol PRN, Azithromycin previously DCed -Mucinex BID -influenza Ag negative -supplemental O2 PRN Shortness of breath, resolved -supplemental O2 and pulmonary toilet Transaminitis, slightly improved - AST and ALT elevated with AST>ALT consistent with alcoholic liver disease - Total bili mildly elevated, alkaline phosphatase elevated - Hepatitis panel negative - Liver u/s noted with evidence of hepatic steatosis - Avoid hepatotoxic agents Diarrhea -C.diff negative - Imodium PRN, start Questran Tobacco abuse -Tobacco cessation counseling provided -Continue nicotine patch DVT prophylaxis-ambulation Discussed 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
[2018-05-26] MEDS ORDERED: Melatonin 5 MG Tablet PO ONE (22:32)
[2018-05-27] MEDS: Loperamide 2 MG Capsule PO PRN ×2 (05:17→09:13)
[2018-05-27 07:39] LABS: Calcium 8.1 mg/dL (8.5-10.1); Carbon Dioxide 21.2 meq/L (21.0-32.0); Potassium 3.9 meq/L (3.5-5.1)
[2018-05-27 08:29] VITALS: RESP 18; O2SAT 98
[2018-05-27] MEDS: Multivitamin/Minerals Therapeutic Tablet PO SCH (09:12)
[2018-05-27] MEDS: guaiFENesin 600 MG ER Tablet PO SCH (09:12)
[2018-05-27] MEDS: Folic Acid 1 MG Tablet PO SCH (09:12)
[2018-05-27 13:45] VITALS: BP 136/88; PULSE 72; TEMP 97.9
--- NOTE | 2018-05-27 14:19 | P.DCO ---
- Physical Therapy Order: Evaluate and treat, Improve ambulation, Strength and gait training - Home Health Nursing Order: Medical education, Signs/symptoms of disease process, Medication education-adverse effect - Case Management Consult Case Management Consult-Home Health: Yes - Certification I have seen patient Abby De La Fuente on 05/27/18. My clinical findings support the need for the requested home health care services because: Limited mobility due to disease progression, Patient has SOB, Deconditioned with increased weakness, Medication compliance is questionable, Limited ability to care for self, Need for psychosocial assistance, High risk of falls I certify that my clinical findings support that this patient is homebound because: Unsteady gait/balance, Unsafe to leave home unassisted, Need for psychosocial assistance, Non-ambulatory: confined to bed or chair, Unable to use public transportation
--- NOTE | 2018-05-27 18:36 | P.DS ---
Date of admission: 05/18/18 17:45 Primary care physician: Bree Santos DO Attending physician on discharge: Jeremías Youngblood Anticipated date of discharge: 05/27/18 Brief History from admission: Patient is a 57-year-old female with past medical history of HTN, EtOH dependence who initially came to the hospital for complaints of dehydration, diarrhea, shortness of breath. Sister at bedside. Patient states that for the past 2 months she has been having increasing shortness of breath. Mostly sleeping on the couch. States she continues to smoke about half a pack to a pack per day. Was not diagnosed with COPD as she has not gone to any doctor. Patient also states that for the past 2 days or so she has been having diarrhea about 1-2 and a day. Has not been eating well. Complaints of bilateral lower extremity edema with congestion in her chest states that she is coughing up phlegm occasionally. States that she feels very dehydrated this morning that she went out to buy sixpack of beer. States that she has been drinking almost every day but she did not finish her 6 pack of beer today. Patient states long history of alcohol use unable to mention year. Sister provided collateral information were and patient has been sober before about 6 years ago and then restarted drinking. States that patient has been reclusive and not allowing her in her life until if she was not feeling well today that she called her. Severe hyponatremia sodium 117, hypokalemia 2.8, hypomagnesemia 0.8 anion 17, BUN 4, creatinine 0.82, Chest x-ray showed lungs are clear. Patient update on day of discharge: Patient is doing well. Denies any acute concerns. Remains motivated to quit alcohol. Going to stay with her sister. DS: Medications - Discharge Medications Prescriptions: chlordiazepoxide HCl 20 mg PO Q8H PRN #9 cap PRN Reason: Alcohol Withdrawal chlordiazepoxide HCl 25 mg PO Q8H PRN #9 cap PRN Reason: Alcohol Withdrawal folic acid 1 mg PO DAILY #30 tab thiamine HCl (vitamin B1) 100 mg PO Q12H #30 tab DS: Summary Hospital Course: Patient is a 57 y/o female with a past medical history significant for hypertension and ETOH dependence. She presented to the hospital complaining of shortness of breath, dehydration and diarrhea. EtOH withdrawal -EtOH cessation encouraged -CIWA protocol, DC Librium since this has not been used in about 24hrs. - Rally pack Hyponatremia, improved -Improving s/p IVF -Continue to monitor Hypokalemia -K 3.4, likely secondary to ongoing diarrhea, replacement PO -K+ improved to 3.9. Hypomagnesemia -replaced, recheck stable Bronchitis - evaluated 05/25/18 -currently on DuoNeb with albuterol PRN, Azithromycin previously DCed -Mucinex BID -influenza Ag negative -supplemental O2 PRN Shortness of breath, resolved -supplemental O2 and pulmonary toilet Transaminitis, slightly improved - AST and ALT elevated with AST>ALT consistent with alcoholic liver disease - Total bili mildly elevated, alkaline phosphatase elevated - Hepatitis panel negative - Liver u/s noted with evidence of hepatic steatosis - Avoid hepatotoxic agents Diarrhea -C.diff negative - Imodium PRN, start Questran Tobacco abuse -Tobacco cessation counseling provided -Continue nicotine patch DVT prophylaxis-ambulation Overall, patient continues to do well. She is motivated to quit alcohol. Will give her short course of Librium to cope with any withdrawal symptoms. Patient is strongly instructed not to drink alcohol while on this med. She verbalized understanding. - Time Spent with Patient Total time spent providing and/or coordinating discharge services: Less than 30 minutes Exam Vital signs: Vital Signs 05/26/18 20:00 05/27/18 00:00 05/27/18 03:43 Temperature 98.5 F 98 F 98.4 F Pulse Rate 84 86 69 Respiratory Rate 20 18 20 Blood Pressure 136/67 160/85 H 158/94 H Pulse Oximetry 97 97 05/27/18 08:00 05/27/18 12:00 Temperature 98.3 F 97.9 F Pulse Rate 67 72 Respiratory Rate 18 18 Blood Pressure 142/76 H 136/88 Pulse Oximetry 98 98 Intake & Output 05/26/18 05/27/18 05/27/18 18:59 06:59 18:59 Intake Total 400 / 400 Balance 400 / 400 Weight 64.4 kg Intake: Oral 400 / 400 Other: # Voids 4 Date of Last Bowel Movement 05/26/18 Narrative: GENERAL: Alert, Oriented x 3, NAD. SKIN: Warm and dry. HEAD: Normocephalic. EYES: No scleral icterus. No injection or drainage. NECK: Supple, trachea midline. No JVD or lymphadenopathy. CARDIOVASCULAR: Regular rate and rhythm without murmurs, gallops, or rubs. RESPIRATORY: Breath sounds equal bilaterally. No accessory muscle use. GASTROINTESTINAL: Abdomen soft, non-tender, nondistended. MUSCULOSKELETAL: No cyanosis, or edema. BACK: Nontender without obvious deformity. No CVA tenderness. Results Procedures completed during hospitalization: none Labs on day of discharge: Labs from last 24 hours 05/27/18 06:30 Sodium 131 L Potassium 3.9 Chloride 102 Carbon Dioxide 21.2 Anion Gap 8 BUN 12 Creatinine 0.71 Estimated GFR 85 L Random Glucose 94 Calcium 8.1 L - Impressions ITS Impressions Chest X-Ray 05/18/18 00:00 CONCLUSION: The lungs are clear. Liver Ultrasound 05/19/18 00:00 CONCLUSION: 1. Hepatic steatosis. 2. Cholelithiasis. No sonographic evidence to suggest acute cholecystitis. 3. Right renal cyst. Discharge Plan - Discharge Disposition Patient Disposition: W/Home Health Service - Discharge Condition Condition: Good - Discharge Order Discharge Orders: Discharge Order (Routine); Ordered 05/27/18 Ordered By: Jeremías Youngblood - Discharge Details Anticipated Discharge Date: 05/27/18 - Physicians Team Primary Care Provider: Bree Santos Attending Provider: Jeremías Youngblood Other Providers: [facility] ; [facility],Agency
== END 2018-05-27 16:43 | disposition home health service (06) ==
LOC: NEPC 15:28 → NEDA 17:45 → NEDH 22:16 → HCIS 05-19 15:15 → N06 05-24 21:17 → N04 05-26 14:49
PROVIDERS: ADMIT Hospitalist; ATTEND Hospitalist